=== PATIENT | male | born 1970 | race Caucasian/White ===

== ENCOUNTER 2023-11-20 10:12 | Outpatient (CLI) | payer OTHER, SELFPAY ==
--- NOTE | ~2023-11-20 | CT_ITS ---
EXAMINATION: CT abdomen pelvis w con DATE: 11/20/2023 10:53 INDICATION: Jaundice, abdominal bloating. Nausea, vomiting. TECHNIQUE: Computed tomography (CT) of the abdomen and pelvis was performed with 100 CC Omnipaque 350 intravenous contrast. Automated exposure control and iterative reconstruction technique were employe d. Exam dose: 1354.21 mGy-cm total exam DLP. COMPARISON: None. FINDINGS: There is mild discoid atelectasis or scarring in the right lower lobe. The lung bases are o therwise clear, without infiltrate or consolidation. No pericardial or pleural effusion. Moderately large amount of ascites, with perihepatic, perisplenic, hepatorenal space, bilateral parac olic gutter and pelvic ascitic fluid accumulation. There is subcutaneous adipose edema of the chest, abdominal and pelvic anderson. There appears to be some surface nodularity of liver suggesting cirrhosis. No focal space-occupying m ass lesion of the liver is detected. No bile duct or pancreatic duct dilatation is noted. The gallbla dder is present. No gallbladder wall thickening is evident. There is splenomegaly. Normal morphology of the adrenal glands. 1.3 cm right renal cyst. 1.4 cm left renal cyst. No urinary tract calculus or hydroureteronephrosis. There is mild diffuse bladder wall thickening, mi ld prostatomegaly, multiple prostate calcifications. Surgical clips in both inguinal canals consisten t with prior vasectomy. Is atherosclerotic calcification but normal caliber of the abdominal aorta and iliac arteries. No int raperitoneal or retroperitoneal or pelvic mass lesion or adenopathy is detected. Diverticulosis of the colon; no CT evidence of diverticulitis is noted. No bowel obstruction or intra peritoneal free air. Normal appendix. Old ununited fracture of the distal right 12th rib. No suspicious osteolytic or osteoblastic lesions. IMPRESSION: Cirrhosis, splenomegaly, moderately large amount of ascites Chest and abdominal wall edema Prostate enlargement and calcifications Bilateral renal cysts Reviewed, dictated and finalized at [facility]. Reviewed, dictated and finalized at location [facility].
[2023-11-20 10:42] LABS: Estimated Glomerular Filt Rate > 60
== END 2023-11-20 10:13 ==
PROVIDERS: PCP Nurse Practitioner Family; Visit Provider Nurse Practitioner Family
DX: N40.0 Benign prostatic hyperplasia without lower urinary tract symptoms (principal); K74.60 Unspecified cirrhosis of liver; R16.1 Splenomegaly, not elsewhere classified; R22.2 Localized swelling, mass and lump, trunk; N28.1 Cyst of kidney, acquired
CPT/HCPCS: 74177; Q9967

== ENCOUNTER 2023-11-22 17:17 | Inpatient (IN) | payer OTHER, SELFPAY ==
--- NOTE | ~2023-11-22 | US_ITS ---
EXAMINATION: US paracentesis abd w/image DATE: 11/27/2023 15:19 INDICATION: Ascites. TECHNIQUE: The procedure and its risks and benefits were discussed with the patient. Potential risks discussed included bleeding and infection. The skin was prepped and draped in sterile fashion. 1% lid ocaine was used for local anesthesia. Under ultrasound guidance, a 5 Fr catheter with trochar was adv anced into the ascites in the right abdomen. Fluid was aspirated into vacuum bottles. The catheter wa s removed, and a dressing was applied. There were no immediate complications. FINDINGS: Ultrasound images demonstrate ascites and the catheter within the fluid. IMPRESSION: 1. Successful ultrasound-guided paracentesis yielding 1450 mL of dark brownish fluid. Reviewed, dictated and finalized at location [facility].
--- NOTE | ~2023-11-22 | XR_ITS ---
EXAMINATION: XR chest 2V DATE: 11/22/2023 18:09 INDICATION: Shortness of breath TECHNIQUE: PA and lateral views of the chest are obtained. COMPARISON: None available FINDINGS: There is a mild diffuse interstitial pattern. No pleural effusion or pneumothorax. The card iomediastinal silhouette is normal. The visualized bones and soft tissues are unremarkable. IMPRESSION: 1. Mild diffuse interstitial pattern which could reflect mild pulmonary edema. Reviewed, dictated and finalized at location [facility].
--- NOTE | ~2023-11-22 | CT_ITS ---
EXAMINATION: CT abdomen pelvis w con INDICATION: Left-sided abdominal pain, ascites TECHNIQUE: Computed tomographic images of the abdomen and pelvis were obtained after the administrati on of 100 cc of Omnipaque 350 intravenous contrast. The dose-length product (DLP) was 1600.70 mGy-cm. Automated exposure control and iterative reconstruction technique were employed. COMPARISON: 11/20/2023 FINDINGS: There is mild smooth interlobular septal thickening of the visualized lung bases, consisten t with mild pulmonary edema. The heart size is normal. There is calcified coronary artery atheroscler osis. There is nodularity of the liver surface. Splenomegaly is noted. There is a moderate volume of ascites. The gallbladder remains distended. The pancreas and adrenal glands are normal. Cysts of the kidneys measure up to 1.5 cm on the left. No pathologically enlarged abdominal lymph nodes are identi fied. There is mild bilateral inguinal lymphadenopathy, likely reactive. No free intraperitoneal gas or evidence of bowel obstruction. There is mild lumbar spondylosis. Diffuse anasarca is noted. IMPRESSION: 1. Cirrhosis with splenomegaly. 2. Moderate volume of ascites. 3. Distended gallbladder which may be due to chronic liver disease. Reviewed, dictated and finalized at location [facility].
[2023-11-22 17:18] VITALS: BP 163/71; PULSE 105; RESP 20; TEMP 37; O2SAT 100
--- NOTE | 2023-11-22 17:24 | ED.ABDPAIN ---
HPI - Abdominal Pain General Chief Complaint: Abdominal Pain <GRETA Espinoza Last Filed: 11/22/23 17:33> Stated Complaint: PARACENTESIS REQUESTED <GRETA Espinoza Last Filed: 11/22/23 17:33> Time Seen by Provider: 11/22/23 17:24 <Nayeli Oneill PA-C - Last Filed: 11/22/23 17:33> Focused HPI: Patient is a 53-year-old male who presents the ED with report of abdominal pain and bloating. Patient reports he has had increased abdominal bloating and swelling over the last month. He complains of pain throughout his left-sided abdomen. He also reports he has been jaundiced for the past 1 month. Denies history of jaundice. He is an alcoholic, drinks 4-5 beers per day with a few shots. Denies drinking anything today. States he had an outpatient CT performed on 11/19 which showed cirrhosis and ascites. He saw his primary care doctor today for follow-up and was referred to the ED for paracentesis. Patient denies previous history of paracentesis. He additionally endorses swelling in his lower extremities, shortness of breath, worse with exertion, occasional nausea. Denies fevers, vomiting, chest pain. GENERAL: ill-appearing, morbidly obese with BMI 43.3, and in no acute distress. HEAD: Normocephalic, atraumatic. CHEST: Clear to auscultation. ?No respiratory distress. Decreased lung sounds throughout. HEART: Tachycardic with regular rhythm.? ABD: Abdomen is distended, somewhat firm, tenderness throughout epigastric and left upper abdomen. NEURO: ?Alert and oriented x3. Patient screened in triage and initial orders placed.? ?Additional care and disposition to be based upon?diagnostic testing and treatment. <GRETA Espinoza Last Filed: 11/22/23 17:33> Source: patient and old records reviewed <GRETA Espinoza Last Filed: 11/22/23 17:33> Mode of arrival: ambulatory <GRETA Espinoza Last Filed: 11/22/23 17:33> Limitations: no limitations <Nayeli Oneill PA-C - Last Filed: 11/22/23 17:33> Exam Narrative: APPEARANCE: jaundice, A&O x4 Head: atraumatic. EYES: EOMI, NOSE: Atraumatic NECK: Trachea midline RESPIRATORY: No increased rate of breathing ,bibasilar rales CARDIOVASCULAR: RRR, pitting edema lower extremities ABDOMINAL: Distended, positive fluid wave, nontender MUSCULOSKELETAl: No obvious deformities NEURO: Alert. Moving 4/4 extremities SKIN:: jaundiced PSYCHIATRIC: Normal affect <Emigdio Stoll MD - Last Filed: 11/22/23 21:53> Course Vital Signs Vital signs: Vital Signs Temperature 98.6 F 11/22/23 17:18 Pulse Rate 105 H 11/22/23 17:18 Respiratory Rate 20 11/22/23 17:18 Blood Pressure 163/71 H 11/22/23 17:18 Pulse Oximetry 100 11/22/23 17:18 Oxygen Delivery Room Air 11/22/23 17:18 Temperature 98.6 F 11/22/23 17:18 Pulse Rate 98 11/22/23 21:05 Respiratory Rate 18 11/22/23 21:05 Blood Pressure 133/70 11/22/23 21:05 Pulse Oximetry 97 11/22/23 21:05 Oxygen Delivery Room Air 11/22/23 17:18 <Nayeli Oneill PA-C - Last Filed: 11/22/23 17:33> Vital Signs Temperature 98.6 F 11/22/23 17:18 Pulse Rate 105 H 11/22/23 17:18 Respiratory Rate 20 11/22/23 17:18 Blood Pressure 163/71 H 11/22/23 17:18 Pulse Oximetry 100 11/22/23 17:18 Oxygen Delivery Room Air 11/22/23 17:18 Temperature 98.6 F 11/22/23 17:18 Pulse Rate 98 11/22/23 21:05 Respiratory Rate 18 11/22/23 21:05 Blood Pressure 133/70 11/22/23 21:05 Pulse Oximetry 97 11/22/23 21:05 Oxygen Delivery Room Air 11/22/23 17:18 <Emigdio Stoll MD - Last Filed: 11/22/23 21:53> MDM - Abdominal Pain MDM Narrative Medical decision making narrative: MSE by GEOVANY in triage. <Nayeli Oneill PA-C - Last Filed: 11/22/23 17:33> MSE by GEOVANY in triage. -Course: 53-year-old male presenting with new onset liver failure. He has significant j
--- NOTE | 2023-11-22 17:25 | ECG_ITS ---
Measurements Intervals [place] Rate: 96 P: 35 NE: 164 QRS: -23 QRSD: 101 T: 34 QT: 372 QTc: 470 Interpretive Statements SINUS RHYTHM ATRIAL PREMATURE COMPLEX DELAYED PRECORDIAL R/S TRANSITION MINIMAL Q WAVES- HIGH LATERAL LEADS BORDERLINE ST ABNORMALITY- ANTERIOR LEADS BASELINE WANDER- I, II BORDERLINE ECG NO PREVIOUS ECG AVAILABLE FOR COMPARISON Electronically Signed On 11-23-2023 6:32:15 CDT by Faustino Camarillo D.O.
[2023-11-22 18:59] LABS: Basophils Percent Auto 0.6 % (0.2-1.2); Eosinophils Percent Auto 0.6 % (0-4.4); Hemoglobin 7.8 g/dL (14.0-18.0); Immature Granulocyte Absolute 0.01 K/mm3 (0.00-0.031); Immature Granulocyte Percent A 0.3 % (0-0.5); Immature Platelet Fraction Pct 1.8 % (0.9-11.2); Lymphocytes Absolute Auto 0.64 K/mm3 (0.9-3.2); Lymphocytes Percent Auto 20.3 % (18.3-44.2); Mean Corpuscular HGB Conc 32.5 g/dl (32-36); Mean Corpuscular Hemoglobin 38.4 pg (26-34); Mean Corpuscular Volume 118.2 fl (80-100); Mean Platelet Volume 9.3 fl (7.4-10.4); Monocytes Absolute Auto 0.3 K/mm3 (0.1-0.6); Monocytes Percent Auto 8.6 % (2.6-8.5); Neutrophils Absolute Auto 2.2 K/mm3 (1.3-6.7); Neutrophils Percent Auto 69.6 % (45.5-73.1); Platelet Count Result 43 k/mm3 (150-375); Red Blood Count 2.03 M/mm3 (4.6-6.20); Red Cell Distribution Width 14.8 % (11.5-14.5); White Blood Count 3.2 K/mm3 (4.5-10.0)
[2023-11-22 19:07] LABS: INR 2.6; Prothrombin Time 29.9 Seconds (11.1-14.7)
[2023-11-22 19:08] LABS: Partial Thromboplastin Time 47.9 Seconds (22.3-36.8)
[2023-11-22 19:09] LABS: Ethanol < 10 mg/dL (<10)
[2023-11-22 19:19] LABS: Large Platelets Present; Platelet Estimate Decreased (Adequate)
[2023-11-22 19:20] LABS: Anisocytosis 1+; Macrocytosis 1+ (NORMAL)
[2023-11-22 19:21] LABS: Schistocytes Rare
[2023-11-22 19:28] LABS: Alanine Aminotransferase 35 U/L (6-50); Albumin Level 3.4 g/dL (3.5-5.1); Alkaline Phosphatase 276 U/L (38-126); Anion Gap 4 mmol/L (8-16); Aspartate Amino Transferase 132 U/L (17-59); Bilirubin Direct 2.9 mg/dL (0-0.3); Bilirubin,Total 14.4 mg/dL (0.2-1.3); Blood Urea Nitrogen 8 mg/dL (9-20); Calcium 8.1 mg/dL (8.4-10.2); Carbon Dioxide 27 mmol/L (22-30); Chloride 103 mmol/L (98-107); Estimated CRCL calculation 201 ml/min; Estimated Glomerular Filt Rate > 60; Glucose 139 mg/dL (65-110); Lipase 122 U/L (23-300); Magnesium 1.6 mg/dL (1.6-2.3); Potassium 4.6 mmol/L (3.4-5.0); Sodium 134 mmol/L (137-145)
[2023-11-22 19:39] LABS: NT Pro B Type Natriuretic Pept 358 pg/mL (19.9-100)
[2023-11-22 19:40] LABS: Bacteria Urine None Seen /hpf; Mucus Urine Present /lpf; Need Manual Microscopic Reviewed; Non Pathogenic Casts 0-2; RBC Urine 0-2 /hpf (0-2); Squamous Epithelial Cell Urine Few /hpf (Few); WBC Urine 0-5 /hpf (0-3)
[2023-11-22 19:42] LABS: Appearance Urine Cloudy (Clear); Bilirubin Urine 3+ (Negative); Blood Urine Negative (Negative); Color Urine Orange (Yellow); Glucose Urine UA Negative (Negative); Ketones Urine Negative (Negative); Leukocyte Esterase Ur 1+ LEU/UL (Negative); Nitrate Urine Positive (Negative); Protein Urine 1+ mg/dL (Negative); Specific Grav Ur 1.025 (1.001-1.035); pH Urine 5.5 (5.0-9.0)
[2023-11-22 19:45] LABS: Add Urine Microscopic? YES
[2023-11-22 19:49] LABS: Amphetamine Screen Urine Negative (Negative); Barbiturate Screen Urine Negative (Negative); Benzodiazepines Screen Urine Negative (Negative); Cannabinoid Screen Urine Negative (Negative); Cocaine Screen Urine Negative (Negative); Methadone Screen Urine Negative (Negative); Opiate Screen Urine Negative (Negative); Phencyclidine Screen Urine Negative (Negative)
[2023-11-22 21:05] VITALS: BP 133/70; PULSE 98; RESP 18; O2SAT 97
[2023-11-22 22:00] VITALS: BP 118/76; PULSE 96; RESP 18; O2SAT 98
--- NOTE | 2023-11-22 22:21 | PM.IMHP ---
H&P: HPI History of Present Illness Date/Time: 11/22/23 22:21 Chief Complaint: Abdominal distension Narrative: this is a 53-year-old male with past medical history significant for alcohol dependence, hepatic cirrhosis, tobacco dependence. Patient presents to the emergency room due to abdominal distension, leg swelling, increased abdominal girth, jaundice. Has had chills. Denies any hematemesis, coffee-ground emesis, melena, or bright red blood per rectum. Preliminary workup showed moderate amount of ascites present. Patient has been admitted for further evaluation management and treatment. EXAMINATION: XR chest 2V DATE: 11/22/2023 18:09 INDICATION: Shortness of breath TECHNIQUE: PA and lateral views of the chest are obtained. COMPARISON: None available FINDINGS: There is a mild diffuse interstitial pattern. No pleural effusion or pneumothorax. The cardiomediastinal silhouette is normal. The visualized bones and soft tissues are unremarkable. IMPRESSION: 1. Mild diffuse interstitial pattern which could reflect mild pulmonary edema. EXAMINATION: CT abdomen pelvis w con INDICATION: Left-sided abdominal pain, ascites TECHNIQUE: Computed tomographic images of the abdomen and pelvis were obtained after the administration of 100 cc of Omnipaque 350 intravenous contrast. The dose-length product (DLP) was 1600.70 mGy-cm. Automated exposure control and iterative reconstruction technique were employed. COMPARISON: 11/20/2023 FINDINGS: There is mild smooth interlobular septal thickening of the visualized lung bases, consistent with mild pulmonary edema. The heart size is normal. There is calcified coronary artery atherosclerosis. There is nodularity of the liver surface. Splenomegaly is noted. There is a moderate volume of ascites. The gallbladder remains distended. The pancreas and adrenal glands are normal. Cysts of the kidneys measure up to 1.5 cm on the left. No pathologically enlarged abdominal lymph nodes are identified. There is mild bilateral inguinal lymphadenopathy, likely reactive. No free intraperitoneal gas or evidence of bowel obstruction. There is mild lumbar spondylosis.? Diffuse anasarca is noted. IMPRESSION: 1. Cirrhosis with splenomegaly. 2. Moderate volume of ascites. 3. Distended gallbladder which may be due to chronic liver disease. Review of Systems Review of Systems: Abdominal distension, jaundice Constitutional: Constitutional: Reports chills, Reports fatigue, Reports lethargy and Reports malaise PMFSH Social History Social History Smoking packs per day: 1.5 Smoking cigarettes per day: 30.0 Years smoked: 40 Smoking pack-years: 60.00 Smoking status: Current every day smoker Tobacco type: cigarettes Second hand tobacco smoke exposure: No Alcohol intake: current Substance use: never Do You Feel Safe in your Home?: Yes Lack of Transportation: No Lack of Food: Never True Current Housing: I Have Housing Concerned About Future Housing: No Difficulty Paying Gas/Electric Bills: No Difficulty Paying for Meds: No Currently Unemployed: No Education: High School Diploma/GED Difficulty w/ Childcare or Family Care: No Spiritual care concerns: No Meds Home Medications and Allergies Home Medications Medication Instructions Recorded Confirmed Type lisinopril 10 mg tablet 10 mg PO DAILY 11/22/23 11/22/23 History naproxen 500 mg tablet 500 mg PO PRN 11/22/23 11/22/23 History omeprazole 40 mg capsule,delayed 40 mg PO DAILY 11/22/23 11/22/23 History release sertraline 50 mg tablet (Zoloft) 50 mg PO DAILY 11/22/23 11/22/23 History sildenafil (pulm.hypertension) 20 20 mg PO DAILY 11/22/23 11/22/23 History mg tablet (Revatio) Allergies Allergy/AdvReac Type Severity Reaction Status Date / Time No Known Allergies Allergy Verified 11/22/23 22:02 Vital Signs Vital Signs - 24 hr 11/22/23 17:18 11/22/23 21:05 11/22/23 22:00 Temp
[2023-11-22] MEDS: FUROSEMIDE INJ 40 MG/4 ML VIAL IV PUSH (22:25)
[2023-11-22 23:35] VITALS: BMI 43.3
[2023-11-22 23:36] VITALS: BP 143/73; PULSE 107; RESP 20; TEMP 37.5; O2SAT 98
[2023-11-23] VITALS (19 sets, daily range): BP systolic 104–148; BP diastolic 56–74; PULSE 84–107; RESP 18–20; TEMP 36.6–37.5; O2SAT 95–99
--- NOTE | 2023-11-23 00:06 | PC.NURSE ---
Pt is A&O x4, able to make needs known. Pt is here for liver cirrhosis, ascites. On assessment, abdomen is large, hard, distended, tender to palpation in LUQ. +2 edema to BLE. Pt lives at home with spouse. Pt smokes on average 30 cigarettes and currently consumes alcohol. Pt's last drink was yesterday. Pt reports that he drinks about 3 beers and 3 shots daily for many years. Pt is currently on room air and no telemetry ordered, pt ambulates independently in the room and is continent. Very pronounced jaundice noted. Pt was educated on admission process, medication reconciliation completed, use of call light explained and encouraged. Pt's rights and responsibilities explained. Pt verbalized understanding. No further questions at this time, will continue to monitor.
[2023-11-23 00:35] LABS: Folic Acid 7.9 ng/mL (2.76->20)
[2023-11-23] MEDS: ALBUMIN HUMAN 25% 12.5 GM/50ML 50 ML IVPB ×4 (01:06→23:49)
[2023-11-23] MEDS: chlordiazePOXIDE (*CRX) 25 MG CAPSULE 50 MG PO ×5 (01:07→23:43)
[2023-11-23] MEDS: NICOTINE (*PBKC) 21 MG PATCH 1 PATCH TRANSDERM (01:29)
[2023-11-23 05:39] LABS: Glucose Point of Care 124 mg/dl (65-105)
[2023-11-23 07:35] LABS: Mean Corpuscular HGB Conc 32.8 g/dl (32-36); Mean Corpuscular Hemoglobin 38.6 pg (26-34); Mean Corpuscular Volume 117.5 fl (80-100); Mean Platelet Volume 9.4 fl (7.4-10.4); Platelet Count Result 39 k/mm3 (150-375); Red Blood Count 1.71 M/mm3 (4.6-6.20); Red Cell Distribution Width 14.9 % (11.5-14.5); White Blood Count 3.1 K/mm3 (4.5-10.0)
[2023-11-23 07:43] LABS: Anion Gap 3 mmol/L (8-16); Blood Urea Nitrogen 9 mg/dL (9-20); Carbon Dioxide 30 mmol/L (22-30); Chloride 102 mmol/L (98-107); Estimated CRCL calculation 150 ml/min; Estimated Glomerular Filt Rate > 60; Glucose 121 mg/dL (65-110); Potassium 3.5 mmol/L (3.4-5.0); Sodium 135 mmol/L (137-145)
[2023-11-23 07:51] LABS: Hemoglobin 6.6 g/dL (14.0-18.0)
[2023-11-23 07:52] LABS: Hematocrit 20.1 % (42.0-52.0)
[2023-11-23 09:53] LABS: Band Neutrophils Percent 7 % (0-6); Eosinophils Absolute Manual 0.03 K/mm3 (0.02-0.50); Eosinophils Percent Manual 1 % (0-4); Hypochromasia 1+; Lymphocytes Absolute Manual 0.96 K/mm3 (1.1-4.5); Monocytes Absolute Manual 0.18 K/mm3 (0.1-0.90); Monocytes Percent Manual 6 % (3-9); Neutrophils Absolute Manual 1.92 K/mm3 (1.3-6.7); Neutrophils Percent Manual 55 % (46-73); Ovalocytes 1+; Platelet Estimate Decreased (Adequate); Schistocytes None Seen; Total Cells Counted 100
[2023-11-23] MEDS: PANTOPRAZOLE 40 MG TABLET PO ×2 (10:19→18:20)
[2023-11-23] MEDS: SODIUM CHLORIDE 0.9% IV 250 ML 30 ML IV CONT (10:19)
[2023-11-23] MEDS: lisinopriL 10 MG TABLET PO (10:19)
[2023-11-23] MEDS: SERTRALINE HCL 50 MG TABLET PO (10:19)
[2023-11-23 11:38] LABS: Iron 158 ug/dL (49-181)
[2023-11-23] MEDS: SPIRONOLACTONE 50 MG TABLET 100 MG PO (11:40)
[2023-11-23] MEDS: FUROSEMIDE 40 MG TABLET PO (11:40)
[2023-11-23 11:48] LABS: Percent Iron Saturation 78 % (20-50)
[2023-11-23 12:10] LABS: Glucose Point of Care 160 mg/dl (65-105)
--- NOTE | 2023-11-23 12:43 | PM.IMPN ---
Progress Note: A&P Assessment and Plan (1) Decompensation of cirrhosis of liver: Code(s): K72.90 - Hepatic failure, unspecified without coma; K74.60 - Unspecified cirrhosis of liver Status: Acute Assessment and Plan: H&H 6.620.1 this, 2 units PRBC ordered and will continue to monitor iron studies ordered AST/ALT 132/35 paracentesis on hold until after PRBC infusion peritoneal fluid for analysis ordered albumin Q6 started on spironolactone 100 mg and Lasix 40 mg daily patient reports his PCP is referring to loom technician (2) Alcohol dependence: Code(s): F10.20 - Alcohol dependence, uncomplicated Status: Acute Assessment and Plan: CIWA as needed (3) Ascites: Code(s): R18.8 - Other ascites Status: Acute Assessment and Plan: see above (4) Anasarca: Code(s): R60.1 - Generalized edema Status: Acute Assessment and Plan: albumin Q6h Lasix 40 Subjective Date/time seen: 11/23/23 12:43 Interval history: Patient in no acute distress this morning. He denies abdominal pain. His legs are still quite swollen, pitting edema and his skin is jaundiced. He reports his PCP is in the process of referring him to loom technician, but he is not yet established. He will receive 2 units PRBC today and recheck 2 hours post. Continue to trend and monitor. Consider GI consult or transfer if further decompensation. Paracentesis on hold until after blood transfusion, but has been ordered along with fluid studies. Review of Systems Review of Systems: All systems reviewed & are unremarkable except as noted in HPI and below Exam Narrative: GEN: jaundice, A&O x4, no acute distress Head: atraumatic. EYES: EOMI, PERRLA NOSE: Atraumatic NECK: supple RESPIRATORY: lungs sounds clear to auscultation CARDIOVASCULAR: RRR, pitting edema lower extremities ABDOMINAL: Distended, nontender, BS present MUSCULOSKELETAL: No obvious deformities NEURO: Alert. Moving 4/4 extremities SKIN:: jaundiced PSYCHIATRIC: Normal affect Objective Data Vital Signs Vital Signs: Vital Signs - 24 hr 11/22/23 17:18 11/22/23 21:05 11/22/23 22:00 Temperature 98.6 F Pulse Rate 105 H 98 96 Respiratory Rate 20 18 18 Blood Pressure 163/71 H 133/70 118/76 Pulse Oximetry 100 97 98 Oxygen Delivery Room Air 11/22/23 23:36 11/23/23 00:22 11/23/23 00:22 Temperature 99.5 F Pulse Rate 107 H Respiratory Rate 20 Blood Pressure 143/73 H 143/73 H 143/73 H Pulse Oximetry 98 Oxygen Delivery 11/23/23 00:23 11/23/23 04:00 11/23/23 04:00 Temperature 99.5 F Pulse Rate 107 H Respiratory Rate 20 Blood Pressure 143/73 H 148/60 H 148/60 H Pulse Oximetry 98 Oxygen Delivery 11/23/23 04:00 11/23/23 05:20 11/23/23 10:12 Temperature 99.0 F 98.6 F Pulse Rate 106 H 100 100 Respiratory Rate 20 18 Blood Pressure 129/61 122/57 L Pulse Oximetry 95 99 Oxygen Delivery 11/23/23 10:31 11/23/23 09:48 11/23/23 08:00 Temperature 98.4 F Pulse Rate 95 93 Respiratory Rate 18 Blood Pressure 128/61 Pulse Oximetry 96 Oxygen Delivery Room Air 11/23/23 11:31 Temperature 98.3 F Pulse Rate 89 Respiratory Rate 20 Blood Pressure 129/61 Pulse Oximetry 96 Oxygen Delivery Intake/Output Intake/Output: Intake & Output 11/20/23 11/21/23 11/22/23 11/23/23 23:59 23:59 23:59 23:59 Intake Total 50 Output Total 200 Balance -150 Meds/Results Medications: Active Medications Generic Name Dose Route Start Last Admin Trade Name Freq PRN Reason Stop Dose Admin Chlordiazepoxide HCl 50 mg 11/23/23 00:35 11/23/23 11:41 Chlordiazepoxide (*Crx) 25 Mg Capsule PO 50 mg Q6HR MARCELL Administration Furosemide 40 mg 11/23/23 11:00 11/23/23 11:40 Furosemide 40 Mg Tablet PO 40 mg DAILY MARCELL Administration Albumin Human 50 mls @ 50 mls/hr 11/23/23 00:35 11/23/23 05:49 Albutein IVPB 50 mls/hr Q6H
--- NOTE | 2023-11-23 13:10 | P.CONGI_ITS ---
I, Kristian Pepper MD, have provided a substantive portion of the care of this patient and discussed the patient with my Nurse Practitioner. I have reviewed any new relevant radiographic and laboratory results including medications. I agree with her documentation as noted below.?I personally performed the medical decision making and much of the history and exam for this encounter. briefly he is an alcoholic diagnosed with cirrhosis 2-3 months ago but still has been drinking. Here with more jaundice and generalized weakness. Blood work consistent with alcoholic hepatitis, CT scan with cirrhosis and ascites- paracentesis with cell count ordered, also will calculate SAAG. He has decompensated cirrhosis, also pancytopenia could be from cirrhosis/alcohol abuse with BM dysfunction and hypersplenism, no overt gib but at some point will need EGD to assess for PHT and varices. Thiamine, nutrition support, ciwa protocol. He needs to be abstinent and also will need to establish with hepatology given high MELD score Assessment and Plan Assessment and plan (1) Decompensation of cirrhosis of liver: Code(s): K72.90 - Hepatic failure, unspecified without coma; K74.60 - Unspecified cirrhosis of liver Status: Acute Assessment and Plan: likely related to chronic alcohol use but will complete liver w/u to rule out other causes of liver diseases. paracentesis in a.m. peritoneal fluid for analysis. Pancytopenia noted, tbili 14.4, AST 132, ALk phos 276, PT 29.9 and INR 2.6. MELD score 27. stop alcohol all together. (2) Ascites: Code(s): R18.8 - Other ascites Status: Acute Assessment and Plan: paracenteses in a.m. -receiving lasix and spironolactone. (3) Alcohol dependence: Code(s): F10.20 - Alcohol dependence, uncomplicated Status: Acute Assessment and Plan: thiamine 100 mg daily ensure with meals. (4) Anasarca: Code(s): R60.1 - Generalized edema Status: Acute Assessment and Plan: receiving albumin diurese as needed (5) Pancytopenia: Code(s): D61.818 - Other pancytopenia Status: Acute Assessment and Plan: in setting of alcoholic cirrhosis PRBC transfusion done today. (6) Acute liver failure: Code(s): K72.00 - Acute and subacute hepatic failure without coma Status: Acute GI Consult Note Consult date/time: 11/23/23 13:10 Reason for consult: liver failure HPI: Jose Velázquez is a 53 year old male who was admitted to [facility] after presenting to ER with abdominal swelling and jaundice for the past month. He was first dx with cirrhosis approximately 1 month ago. He is an alcoholic and drinks 4-5 beers per day with a few shots, he has been doing this daily since COVID. CT scan of abdomen pelvis with contrast 1. Cirrhosis with splenomegaly. 2. Moderate volume of ascites. 3. Distended gallbladder which may be due to chronic liver disease. Pancytopenia noted, tbili 14.4, AST 132, ALk phos 276, PT 29.9 and INR 2.6. he denies any family history of chronic liver disease or cancers. he denies any IV drug use. he does report fatigue over the past month. He denies any nausea, coffee-ground emesis or black stools. He has had some frequent nose bleeds. reports abdominal tenderness but no fevers. no hx of heart disease. Review of Systems Constitutional: Constitutional: Reports fatigue Eyes: Eyes: Reports as per HPI ENT: Reports epistaxis Cardiovascular: Cardiovascular: Reports no additional cardiovascular complaints Respiratory: Respira
--- NOTE | 2023-11-23 13:10 | WPDGICN ---
Assessment and Plan Assessment and plan (1) Decompensation of cirrhosis of liver: Code(s): K72.90 - Hepatic failure, unspecified without coma; K74.60 - Unspecified cirrhosis of liver Status: Acute Assessment and Plan: likely related to chronic alcohol use but will complete liver w/u to rule out other causes of liver diseases. paracentesis in a.m. peritoneal fluid for analysis. Pancytopenia noted, tbili 14.4, AST 132, ALk phos 276, PT 29.9 and INR 2.6. MELD score 27. stop alcohol all together. (2) Ascites: Code(s): R18.8 - Other ascites Status: Acute Assessment and Plan: paracenteses in a.m. -receiving lasix and spironolactone. (3) Alcohol dependence: Code(s): F10.20 - Alcohol dependence, uncomplicated Status: Acute Assessment and Plan: thiamine 100 mg daily ensure with meals. (4) Anasarca: Code(s): R60.1 - Generalized edema Status: Acute Assessment and Plan: receiving albumin diurese as needed (5) Pancytopenia: Code(s): D61.818 - Other pancytopenia Status: Acute Assessment and Plan: in setting of alcoholic cirrhosis PRBC transfusion done today. (6) Acute liver failure: Code(s): K72.00 - Acute and subacute hepatic failure without coma Status: Acute GI Consult Note Consult date/time: 11/23/23 13:10 Reason for consult: liver failure HPI: Jose Velázquez is a 53 year old male who was admitted to [facility] after presenting to ER with abdominal swelling and jaundice for the past month. He was first dx with cirrhosis approximately 1 month ago. He is an alcoholic and drinks 4-5 beers per day with a few shots, he has been doing this daily since [facility]. CT scan of abdomen pelvis with contrast 1. Cirrhosis with splenomegaly. 2. Moderate volume of ascites. 3. Distended gallbladder which may be due to chronic liver disease. Pancytopenia noted, tbili 14.4, AST 132, ALk phos 276, PT 29.9 and INR 2.6. he denies any family history of chronic liver disease or cancers. he denies any IV drug use. he does report fatigue over the past month. He denies any nausea, coffee-ground emesis or black stools. He has had some frequent nose bleeds. reports abdominal tenderness but no fevers. no hx of heart disease. Review of Systems Constitutional: Constitutional: Reports fatigue Eyes: Eyes: Reports as per HPI ENT: Reports epistaxis Cardiovascular: Cardiovascular: Reports no additional cardiovascular complaints Respiratory: Respiratory: Reports no additional respiratory complaints and Denies hemoptysis Gastrointestinal: Gastrointestinal: Reports as per HPI Musculoskeletal: Musculoskeletal: Reports as per HPI Integumentary/Breasts: Skin/Breast: Reports system reviewed and no additional complaints, except as docu Neurologic: Reports system reviewed and no additional complaints, except as documented Psychiatric: Psychiatric: Reports no additional psychiatric complaints [facility] Past Medical History Medical History (Updated 11/23/23 @ 14:20 by Linda Milan APN-Zeina) Pancytopenia Social History Social History Smoking packs per day: 1.5 Smoking cigarettes per day: 30.0 Years smoked: 40 Smoking pack-years: 60.00 Smoking status: Current every day smoker Tobacco type: cigarettes Second hand tobacco smoke exposure: No Alcohol intake: current Substance use: never Do You Feel Safe in your Home?: Yes Lack of Transportation: No Lack of Food: Never True Current Housing: I Have Housing Concerned About Future Housing: No Difficulty Paying Gas/Electric Bills: No Difficulty Paying for Meds: No Currently Unemployed: No Education: High School Diploma/GED Difficulty w/ Childcare or Family Care: No Spiritual care concerns: No Meds Home Medications and Allergies Home Medications Medication Instructions Recorded Confirmed Type lisinopril 10 mg tablet 10 mg PO DAILY
[2023-11-23 16:55] LABS: Glucose Point of Care 136 mg/dl (65-105)
[2023-11-23 20:14] LABS: Hematocrit 23.1 % (42.0-52.0); Hemoglobin 7.7 g/dL (14.0-18.0)
[2023-11-23 20:55] LABS: Hepatitis B Surface Antigen Negative (Negative)
[2023-11-23 21:00] LABS: HAV RESULT Negative (Negative); Hepatitis B Core IgM Result Negative (Negative)
[2023-11-23 21:12] LABS: Hepatitis C Virus Antibody Negative (Negative)
[2023-11-23 23:55] LABS: Glucose Point of Care 147 mg/dl (65-105)
[2023-11-24] VITALS (10 sets, daily range): BP systolic 105–136; BP diastolic 62–72; PULSE 86–95; RESP 18–20; TEMP 36.4–37; O2SAT 95–96
[2023-11-24 05:09] LABS: Basophils Percent Auto 0.3 % (0.2-1.2); Eosinophils Absolute Auto 0.1 K/mm3 (0-0.3); Eosinophils Percent Auto 1.8 % (0-4.4); Hematocrit 22.5 % (42.0-52.0); Hemoglobin 7.3 g/dL (14.0-18.0); Immature Granulocyte Absolute 0.02 K/mm3 (0.00-0.031); Immature Granulocyte Percent A 0.6 % (0-0.5); Lymphocytes Absolute Auto 0.99 K/mm3 (0.9-3.2); Lymphocytes Percent Auto 30.1 % (18.3-44.2); Mean Corpuscular HGB Conc 32.4 g/dl (32-36); Mean Corpuscular Volume 110.8 fl (80-100); Mean Platelet Volume 9.4 fl (7.4-10.4); Monocytes Absolute Auto 0.3 K/mm3 (0.1-0.6); Monocytes Percent Auto 8.5 % (2.6-8.5); Neutrophils Absolute Auto 1.9 K/mm3 (1.3-6.7); Neutrophils Percent Auto 58.7 % (45.5-73.1); Platelet Count Result 38 k/mm3 (150-375); Red Blood Count 2.03 M/mm3 (4.6-6.20); White Blood Count 3.3 K/mm3 (4.5-10.0)
[2023-11-24 05:36] LABS: Alanine Aminotransferase 26 U/L (6-50); Albumin Level 2.8 g/dL (3.5-5.1); Alkaline Phosphatase 158 U/L (38-126); Anion Gap 3 mmol/L (8-16); Aspartate Amino Transferase 61 U/L (17-59); Bilirubin,Total 18.4 mg/dL (0.2-1.3); Blood Urea Nitrogen 11 mg/dL (9-20); Calcium 8.1 mg/dL (8.4-10.2); Carbon Dioxide 28 mmol/L (22-30); Chloride 102 mmol/L (98-107); Estimated CRCL calculation 173 ml/min; Estimated Glomerular Filt Rate > 60; Glucose 113 mg/dL (65-110); Potassium 3.6 mmol/L (3.4-5.0); Sodium 133 mmol/L (137-145)
[2023-11-24] MEDS: ALBUMIN HUMAN 25% 12.5 GM/50ML 50 ML IVPB ×4 (05:49→23:50)
[2023-11-24] MEDS: chlordiazePOXIDE (*CRX) 25 MG CAPSULE 50 MG PO ×4 (05:49→23:51)
--- NOTE | 2023-11-24 07:11 | P.PNIM_ITS ---
Progress Note: A&P Assessment and Plan (1) Decompensation of cirrhosis of liver: Code(s): K72.90 - Hepatic failure, unspecified without coma; K74.60 - Unspecified cirrhosis of liver Status: Acute (2) Alcohol dependence: Qualifiers: Substance use status: other alcohol-induced disorder Qualified Code(s): F10.288 - Alcohol dependence with other alcohol-induced disorder Code(s): F10.20 - Alcohol dependence, uncomplicated Status: Acute (3) Ascites: Qualifiers: Ascites type: due to alcoholic cirrhosis Qualified Code(s): K70.31 - Alcoholic cirrhosis of liver with ascites Code(s): R18.8 - Other ascites Status: Acute (4) Anasarca: Code(s): R60.1 - Generalized edema Status: Acute Plan Hepatic Failure: Cirrhosis * ?H&H 6.6/20.1 this, 2 units PRBC ordered and will continue to monitor? * ?iron studies ordered * ?AST/ALT 132/35/TBill 18.4 * ?paracentesis on hold until after PRBC infusion * CT ABD Ascites/cirrhosis * ?peritoneal fluid for analysis ordered * ?albumin Q6 * started on spironolactone 100 mg and Lasix 40 mg daily * patient reports his PCP is referring to [place] operator * MELD score 27 * ETOH cessation * Ammonia pending * GI consulted for further recommendations * daily Coag's ETOH abuse: * Thiamine, folic acid, and multi-vitamin * PPI daily * Ativan PRN * CIWA daily * Monitor and replenish electrolytes as needed * Seizure precautions if indicated Anasarca/Ascites: Secondary to cirrhosis * spironolactone/lasix * paracentesis when Hgb/PLT stable * albumin q6hr Pancytopenia: Secondary to acute liver failure * 2 Units PRBC transfused * Hgb 11/23 7.3 * PLT 38 * Transfuse PRBC if Hgb <7.0 * Transfuse PLT <20 Code status: Full code per patient DVT prophylaxis: SCD's Stress ulcer prophylaxis: Protonix 40 BID PT/OT notes: Ambulatory Disposition: Patient continues admission to the medical unit for acute liver failure with ascites will need to undergo paracentesis and studies once coag's are stable. Patient reports he has been referred to a [place] operator by his PCP for continued treatment O/P obliviously if patient decompensates he will need transferred. Encouraged immediate ETOH cessation. Time Spent With Patient Time with patient: 15 - 25 minutes Subjective Date/time seen: 11/24/23 07:11 Interval history: Medical Record: this is a 53-year-old male with past medical history significant for alcohol dependence, hepatic cirrhosis, tobacco dependence.? Patient presents to the emergency room due to abdominal distension, leg swelling, increased abdominal girth, jaundice.? Has had chills.? Denies any hematemesis, coffee-ground emesis, melena, or bright red blood per rectum.? Preliminary workup showed moderate amount of ascites present.? Patient has been admitted for further evaluation management and treatment. 11/22: Medical Record Patient in no acute distress this morning. He denies abdominal pain. His legs are still quite swollen, pitting edema and his skin is jaundiced. He reports his PCP is in the process of referring him to [place] operator, but he is not yet established. He will receive 2 units PRBC today and recheck 2 hours post. Continue to trend and monitor. Consider GI consult or transfer if further decompensation. Paracentesis on hold until after blood transfusion, but has been ordered along with fluid studies. 11/23: Patient denies any w/d symptoms, ABD distended unable to perform paracent
--- NOTE | 2023-11-24 07:11 | PM.IMPN ---
Progress Note: A&P Assessment and Plan (1) Decompensation of cirrhosis of liver: Code(s): K72.90 - Hepatic failure, unspecified without coma; K74.60 - Unspecified cirrhosis of liver Status: Acute (2) Alcohol dependence: Qualifiers: Substance use status: other alcohol-induced disorder Qualified Code(s): F10.288 - Alcohol dependence with other alcohol-induced disorder Code(s): F10.20 - Alcohol dependence, uncomplicated Status: Acute (3) Ascites: Qualifiers: Ascites type: due to alcoholic cirrhosis Qualified Code(s): K70.31 - Alcoholic cirrhosis of liver with ascites Code(s): R18.8 - Other ascites Status: Acute (4) Anasarca: Code(s): R60.1 - Generalized edema Status: Acute Plan Hepatic Failure: Cirrhosis ?H&H 6.6/20.1 this, 2 units PRBC ordered and will continue to monitor? ?iron studies ordered ?AST/ALT 132/35/TBill 18.4 ?paracentesis on hold until after PRBC infusion CT ABD Ascites/cirrhosis ?peritoneal fluid for analysis ordered ?albumin Q6 started on spironolactone 100 mg and Lasix 40 mg daily patient reports his PCP is referring to director economic MELD score 27 ETOH cessation Ammonia pending GI consulted for further recommendations daily Coag's ETOH abuse: Thiamine, folic acid, and multi-vitamin PPI daily Ativan PRN CIWA daily Monitor and replenish electrolytes as needed Seizure precautions if indicated Anasarca/Ascites: Secondary to cirrhosis spironolactone/lasix paracentesis when Hgb/PLT stable albumin q6hr Pancytopenia: Secondary to acute liver failure 2 Units PRBC transfused Hgb 11/23 7.3 PLT 38 Transfuse PRBC if Hgb <7.0 Transfuse PLT <20 Code status: Full code per patient DVT prophylaxis: SCD's Stress ulcer prophylaxis: Protonix 40 BID PT/OT notes: Ambulatory Disposition: Patient continues admission to the medical unit for acute liver failure with ascites will need to undergo paracentesis and studies once coag's are stable. Patient reports he has been referred to a director economic by his PCP for continued treatment O/P obliviously if patient decompensates he will need transferred. Encouraged immediate ETOH cessation. Time Spent With Patient Time with patient: 15 - 25 minutes Subjective Date/time seen: 11/24/23 07:11 Interval history: Medical Record: this is a 53-year-old male with past medical history significant for alcohol dependence, hepatic cirrhosis, tobacco dependence.? Patient presents to the emergency room due to abdominal distension, leg swelling, increased abdominal girth, jaundice.? Has had chills.? Denies any hematemesis, coffee-ground emesis, melena, or bright red blood per rectum.? Preliminary workup showed moderate amount of ascites present.? Patient has been admitted for further evaluation management and treatment. 11/22: Medical Record Patient in no acute distress this morning. He denies abdominal pain. His legs are still quite swollen, pitting edema and his skin is jaundiced. He reports his PCP is in the process of referring him to director economic, but he is not yet established. He will receive 2 units PRBC today and recheck 2 hours post. Continue to trend and monitor. Consider GI consult or transfer if further decompensation. Paracentesis on hold until after blood transfusion, but has been ordered along with fluid studies. 11/23: Patient denies any w/d symptoms, ABD distended unable to perform paracentesis due to coagulations will attempt tomorrow switched to IV lasix. Jaundice and ammonia levels elevated no AMS. Patient denied any current pain, CP, SOB, or N/V. Review of Systems Review of Systems: All systems reviewed & are unremarkable except as noted in HPI and below Exam Narrative: Physical Exam: GENERAL: Alert and oriented x 3. No acute distress. Well-nourished. Jaundice EYES: EOMI. No scleral icterus. PERRLA. HEENT: Moist mucous
[2023-11-24 07:20] LABS: Glucose Point of Care 116 mg/dl (65-105)
[2023-11-24 08:43] LABS: Ammonia 50 umol/L (9-30)
[2023-11-24] MEDS: PANTOPRAZOLE SODIUM IV 40 MG VIAL IV PUSH ×2 (09:56→20:30)
[2023-11-24] MEDS: NICOTINE (*PBKC) 21 MG PATCH 1 PATCH TRANSDERM (09:57)
[2023-11-24 10:58] LABS: INR 2.9; Prothrombin Time 33.1 Seconds (11.1-14.7)
[2023-11-24 10:59] LABS: Partial Thromboplastin Time 48.4 Seconds (22.3-36.8)
[2023-11-24 12:08] LABS: Glucose Point of Care 107 mg/dl (65-105)
[2023-11-24] MEDS: SERTRALINE HCL 50 MG TABLET PO (12:16)
[2023-11-24] MEDS: lisinopriL 10 MG TABLET PO (12:17)
[2023-11-24] MEDS: SPIRONOLACTONE 50 MG TABLET 100 MG PO (12:17)
[2023-11-24] MEDS: FUROSEMIDE 40 MG TABLET PO (12:17)
[2023-11-24] MEDS: FOLIC ACID 1 MG TABLET PO (12:17)
[2023-11-24] MEDS: THIAMINE HCL 100 MG TABLET PO (12:17)
--- NOTE | 2023-11-24 12:55 | WPDGIPROGNO ---
Progress Note: A&P Assessment and Plan (1) Decompensation of cirrhosis of liver: Code(s): K72.90 - Hepatic failure, unspecified without coma; K74.60 - Unspecified cirrhosis of liver Status: Acute Assessment and Plan: he has high meld score and discriminant function intermediate prognosis is guarded specially if he does not stop drinking (2) Alcohol dependence: Qualifiers: Substance use status: other alcohol-induced disorder Qualified Code(s): F10.288 - Alcohol dependence with other alcohol-induced disorder Code(s): F10.20 - Alcohol dependence, uncomplicated Status: Acute Assessment and Plan: [facility] protocol thiamine, nutrition support (3) Pancytopenia: Code(s): D61.818 - Other pancytopenia Status: Acute Assessment and Plan: from cirrhosis, may have bone marrow dysfunction from alcohol he received blood transfusion no overt gib but monitor (4) Ascites: Qualifiers: Ascites type: due to alcoholic cirrhosis Qualified Code(s): K70.31 - Alcoholic cirrhosis of liver with ascites Code(s): R18.8 - Other ascites Status: Acute Assessment and Plan: pending paracentesis, will check cell count and saag (5) Anasarca: Code(s): R60.1 - Generalized edema Status: Acute (6) Coagulopathy: Code(s): D68.9 - Coagulation defect, unspecified Status: Acute Assessment and Plan: will give 3 days of vit K (7) Alcoholic hepatitis: Code(s): K70.10 - Alcoholic hepatitis without ascites Status: Acute Assessment and Plan: medical support he will need to establish with hepatology Subjective Date/time seen: 11/24/23 12:55 Interval history: no changes, he is hungry because was npo to get paracentesis (postponed because high inr and low platelets) Review of Systems Review of Systems: All systems reviewed & are unremarkable except as noted in HPI and below Exam Const: General: comfortable Other: chronically ill appearing, jaundice HENMT: Face/Nose/Sinus: Normal nares present Eyes: Sclera: scleral abnormality (icteric) bilateral (scleral icterus) Neck: Neck: supple Resp: Effort & Inspection: normal respiratory effort Auscultation: clear to auscultation bilaterally Cardio: Rate: regular rate Rhythm: regular rhythm GI: Inspection: distended GI Palp: No Tenderness to palpation present (GI) and Yes Ascites present Percussion: Yes Fluid wave present Auscultation: normal bowel sounds Skin: Other: icteric Neuro: Speech: normal speech Motor exam (neuro): 5/5 motor strength present throughout Extrem: General: edema bilateral and pedal edema Psych: Affect: normal affect Objective Data Vital Signs Vital Signs: Vital Signs - 24 hr 11/23/23 13:30 11/23/23 14:18 11/23/23 14:36 Temperature 98.1 F 98.3 F 98.2 F Pulse Rate 91 84 87 Respiratory Rate 18 18 20 Blood Pressure 119/56 L 109/57 L 112/59 L Pulse Oximetry 96 97 97 Oxygen Delivery 11/23/23 15:36 11/23/23 16:00 11/23/23 16:36 Temperature 98.3 F 98.4 F Pulse Rate 84 86 85 Respiratory Rate 18 18 Blood Pressure 104/66 120/74 Pulse Oximetry 96 97 Oxygen Delivery 11/23/23 17:35 11/23/23 20:08 11/23/23 20:00 Temperature 98.2 F 97.8 F Pulse Rate 88 88 90 Respiratory Rate 18 20 Blood Pressure 107/57 L 110/59 L Pulse Oximetry 97 96 Oxygen Delivery 11/24/23 00:00 11/24/23 04:00 11/24/23 07:25 Temperature Pulse Rate 88 90 Respiratory Rate Blood Pressure Pulse Oximetry 96 Oxygen Delivery Room Air 11/24/23 09:52 11/24/23 08:00 Temperature Pulse Rate 89 Respiratory Rate Blood Pressure Pulse Oximetry Oxygen Delivery Room Air Intake/Output Intake/Output: Intake & Output 11/21/23 11/22/23 11/23/23 11/24/23 23:59 23:59 23:59 23:59 Intake Total 1580 100 Output Total 1200 770 Balance 380 -670 Meds/Results Medications: Active M
[2023-11-24 18:34] LABS: Glucose Point of Care 181 mg/dl (65-105)
[2023-11-25] VITALS (11 sets, daily range): BP systolic 93–120; BP diastolic 42–56; PULSE 86–104; RESP 16–20; TEMP 36.4–37; O2SAT 93–99
[2023-11-25 00:17] LABS: Glucose Point of Care 135 mg/dl (65-105)
[2023-11-25] MEDS: ALBUMIN HUMAN 25% 12.5 GM/50ML 50 ML IVPB ×3 (05:45→18:09)
[2023-11-25] MEDS: chlordiazePOXIDE (*CRX) 25 MG CAPSULE 50 MG PO ×3 (05:48→18:09)
[2023-11-25 06:07] LABS: Basophils Percent Auto 0.8 % (0.2-1.2); Eosinophils Absolute Auto 0.1 K/mm3 (0-0.3); Eosinophils Percent Auto 1.4 % (0-4.4); Hematocrit 22.7 % (42.0-52.0); Hemoglobin 7.5 g/dL (14.0-18.0); Immature Granulocyte Absolute 0.03 K/mm3 (0.00-0.031); Immature Granulocyte Percent A 0.8 % (0-0.5); Immature Platelet Fraction Pct 2.8 % (0.9-11.2); Lymphocytes Absolute Auto 1.01 K/mm3 (0.9-3.2); Lymphocytes Percent Auto 27.3 % (18.3-44.2); Mean Corpuscular Hemoglobin 36.9 pg (26-34); Mean Corpuscular Volume 111.8 fl (80-100); Mean Platelet Volume 9.8 fl (7.4-10.4); Monocytes Absolute Auto 0.3 K/mm3 (0.1-0.6); Monocytes Percent Auto 8.1 % (2.6-8.5); Neutrophils Absolute Auto 2.3 K/mm3 (1.3-6.7); Neutrophils Percent Auto 61.6 % (45.5-73.1); Platelet Count Result 38 k/mm3 (150-375); Red Blood Count 2.03 M/mm3 (4.6-6.20); Red Cell Distribution Width 21.9 % (11.5-14.5); White Blood Count 3.7 K/mm3 (4.5-10.0)
[2023-11-25 06:13] LABS: INR 2.9; Prothrombin Time 32.6 Seconds (11.1-14.7)
[2023-11-25 06:14] LABS: Partial Thromboplastin Time 51.4 Seconds (22.3-36.8)
[2023-11-25 06:22] LABS: Alanine Aminotransferase 23 U/L (6-50); Albumin Level 3.1 g/dL (3.5-5.1); Alkaline Phosphatase 155 U/L (38-126); Anion Gap 3 mmol/L (8-16); Aspartate Amino Transferase 53 U/L (17-59); Bilirubin,Total 18.6 mg/dL (0.2-1.3); Blood Urea Nitrogen 13 mg/dL (9-20); Calcium 8.3 mg/dL (8.4-10.2); Carbon Dioxide 28 mmol/L (22-30); Chloride 101 mmol/L (98-107); Estimated CRCL calculation 182 ml/min; Estimated Glomerular Filt Rate > 60; Glucose 119 mg/dL (65-110); Potassium 3.7 mmol/L (3.4-5.0); Sodium 132 mmol/L (137-145)
--- NOTE | 2023-11-25 06:59 | P.PNIM_ITS ---
Progress Note: A&P Assessment and Plan (1) Decompensation of cirrhosis of liver: Code(s): K72.90 - Hepatic failure, unspecified without coma; K74.60 - Unspecified cirrhosis of liver Status: Acute (2) Alcohol dependence: Qualifiers: Substance use status: other alcohol-induced disorder Qualified Code(s): F10.288 - Alcohol dependence with other alcohol-induced disorder Code(s): F10.20 - Alcohol dependence, uncomplicated Status: Acute (3) Ascites: Qualifiers: Ascites type: due to alcoholic cirrhosis Qualified Code(s): K70.31 - Alcoholic cirrhosis of liver with ascites Code(s): R18.8 - Other ascites Status: Acute (4) Anasarca: Code(s): R60.1 - Generalized edema Status: Acute (5) Pancytopenia: Code(s): D61.818 - Other pancytopenia Status: Acute (6) Coagulopathy: Code(s): D68.9 - Coagulation defect, unspecified Status: Acute (7) Acute liver failure: Code(s): K72.00 - Acute and subacute hepatic failure without coma Status: Acute (8) Alcoholic hepatitis: Code(s): K70.10 - Alcoholic hepatitis without ascites Status: Acute Plan Hepatic Failure: Cirrhosis * ?H&H 6.6/20.1 this, 2 units PRBC ordered and will continue to monitor? * ?iron studies ordered * ?AST/ALT 132/35/TBill 18.4 * ?paracentesis on hold INR and PLT currently to low * CT ABD Ascites/cirrhosis * ?peritoneal fluid for analysis ordered * ?albumin Q6 * started on spironolactone 100 mg and Lasix 40 mg daily * patient reports his PCP is referring to [facility] analyst * MELD score 27 * ETOH cessation * Ammonia 50 Asymptomatic * GI consulted for further recommendations * daily Coag's 11/24: * GI giving vitamin K x3 * INR still 2.9/ PLT paracentesis still on hold * starting lactulose BID * may need to transfuse plt to get paracentesis * npo tonight in hopes for paracentesis 11/25 ETOH abuse: * Thiamine, folic acid, and multi-vitamin * PPI daily * Ativan PRN * CIWA daily * Monitor and replenish electrolytes as needed * Seizure precautions if indicated Anasarca/Ascites: Secondary to cirrhosis * spironolactone/lasix * paracentesis when Hgb/PLT stable * albumin q6hr Pancytopenia: Secondary to acute liver failure * 2 Units PRBC transfused * Hgb 11/23 7.3 * PLT 38 * Transfuse PRBC if Hgb <7.0 * Transfuse PLT <20 Code status: Full code per patient DVT prophylaxis: SCD's Stress ulcer prophylaxis: Protonix 40 BID PT/OT notes: Ambulatory Disposition: Patient continues admission to the medical unit for acute liver failure with ascites will need to undergo paracentesis and studies once coag's are stable. Patient reports he has been referred to a [place] analyst by his PCP for continued treatment O/P obliviously if patient decompensates he will need transferred. Encouraged immediate ETOH cessation. Time Spent With Patient Time with patient: 15 - 25 minutes Subjective Date/time seen: 11/25/23 06:59 Interval history: Medical Record: this is a 53-year-old male with past medical history significant for alcohol dependence, hepatic cirrhosis, tobacco dependence.? Patient presents to the emergency room due to abdominal distension, leg swelling, increased abdominal girth, jaundice.? Has had chills.? Denies any hematemesis, coffee-ground emesis, melena, or bright red blood per rectum.? Preliminary workup showed moderate amount of ascites present.? Patient art
--- NOTE | 2023-11-25 06:59 | PM.IMPN ---
Progress Note: A&P Assessment and Plan (1) Decompensation of cirrhosis of liver: Code(s): K72.90 - Hepatic failure, unspecified without coma; K74.60 - Unspecified cirrhosis of liver Status: Acute (2) Alcohol dependence: Qualifiers: Substance use status: other alcohol-induced disorder Qualified Code(s): F10.288 - Alcohol dependence with other alcohol-induced disorder Code(s): F10.20 - Alcohol dependence, uncomplicated Status: Acute (3) Ascites: Qualifiers: Ascites type: due to alcoholic cirrhosis Qualified Code(s): K70.31 - Alcoholic cirrhosis of liver with ascites Code(s): R18.8 - Other ascites Status: Acute (4) Anasarca: Code(s): R60.1 - Generalized edema Status: Acute (5) Pancytopenia: Code(s): D61.818 - Other pancytopenia Status: Acute (6) Coagulopathy: Code(s): D68.9 - Coagulation defect, unspecified Status: Acute (7) Acute liver failure: Code(s): K72.00 - Acute and subacute hepatic failure without coma Status: Acute (8) Alcoholic hepatitis: Code(s): K70.10 - Alcoholic hepatitis without ascites Status: Acute Plan Hepatic Failure: Cirrhosis ?H&H 6.6/20.1 this, 2 units PRBC ordered and will continue to monitor? ?iron studies ordered ?AST/ALT 132/35/TBill 18.4 ?paracentesis on hold INR and PLT currently to low CT ABD Ascites/cirrhosis ?peritoneal fluid for analysis ordered ?albumin Q6 started on spironolactone 100 mg and Lasix 40 mg daily patient reports his PCP is referring to cotton weigher operator MELD score 27 ETOH cessation Ammonia 50 Asymptomatic GI consulted for further recommendations daily Coag's 11/24: GI giving vitamin K x3 INR still 2.9/ PLT paracentesis still on hold starting lactulose BID may need to transfuse plt to get paracentesis npo tonight in hopes for paracentesis 11/25 ETOH abuse: Thiamine, folic acid, and multi-vitamin PPI daily Ativan PRN CIWA daily Monitor and replenish electrolytes as needed Seizure precautions if indicated Anasarca/Ascites: Secondary to cirrhosis spironolactone/lasix paracentesis when Hgb/PLT stable albumin q6hr Pancytopenia: Secondary to acute liver failure 2 Units PRBC transfused Hgb 11/23 7.3 PLT 38 Transfuse PRBC if Hgb <7.0 Transfuse PLT <20 Code status: Full code per patient DVT prophylaxis: SCD's Stress ulcer prophylaxis: Protonix 40 BID PT/OT notes: Ambulatory Disposition: Patient continues admission to the medical unit for acute liver failure with ascites will need to undergo paracentesis and studies once coag's are stable. Patient reports he has been referred to a cotton weigher operator by his PCP for continued treatment O/P obliviously if patient decompensates he will need transferred. Encouraged immediate ETOH cessation. Time Spent With Patient Time with patient: 15 - 25 minutes Subjective Date/time seen: 11/25/23 06:59 Interval history: Medical Record: this is a 53-year-old male with past medical history significant for alcohol dependence, hepatic cirrhosis, tobacco dependence.? Patient presents to the emergency room due to abdominal distension, leg swelling, increased abdominal girth, jaundice.? Has had chills.? Denies any hematemesis, coffee-ground emesis, melena, or bright red blood per rectum.? Preliminary workup showed moderate amount of ascites present.? Patient has been admitted for further evaluation management and treatment. 11/22: Medical Record Patient in no acute distress this morning. He denies abdominal pain. His legs are still quite swollen, pitting edema and his skin is jaundiced. He reports his PCP is in the process of referring him to cotton weigher operator, but he is not yet established. He will receive 2 units PRBC today and recheck 2 hours post. Continue to trend and monitor. Consider GI consult or transfer if further decompensation. Paracentesis on hold until aft
[2023-11-25 07:04] LABS: Crenated RBC 1+; Platelet Estimate Decreased (Adequate); Poikilocytosis 1+
[2023-11-25 07:05] LABS: Schistocytes 1+
[2023-11-25 07:08] LABS: Glucose Point of Care 215 mg/dl (65-105)
[2023-11-25] MEDS: SPIRONOLACTONE 50 MG TABLET 100 MG PO (08:44)
[2023-11-25] MEDS: lisinopriL 10 MG TABLET PO (08:45)
[2023-11-25] MEDS: PHYTONADIONE 5 MG TABLET PO (08:45)
[2023-11-25] MEDS: FUROSEMIDE INJ 40 MG/4 ML VIAL IV PUSH (08:45)
[2023-11-25] MEDS: THIAMINE HCL 100 MG TABLET PO (08:45)
[2023-11-25] MEDS: FOLIC ACID 1 MG TABLET PO (08:45)
[2023-11-25] MEDS: SERTRALINE HCL 50 MG TABLET PO (08:45)
[2023-11-25] MEDS: PANTOPRAZOLE SODIUM IV 40 MG VIAL IV PUSH ×2 (08:46→20:30)
[2023-11-25] MEDS: NICOTINE (*PBKC) 21 MG PATCH 1 PATCH TRANSDERM (08:46)
--- NOTE | 2023-11-25 10:43 | WPDGIPROGNO ---
Progress Note: A&P Assessment and Plan (1) Decompensation of cirrhosis of liver: Code(s): K72.90 - Hepatic failure, unspecified without coma; K74.60 - Unspecified cirrhosis of liver Status: Acute Assessment and Plan: he has high meld score and discriminant function [facility] prognosis is guarded specially if he does not stop drinking he will need to get established with hepatology (2) Alcohol dependence: Qualifiers: Substance use status: other alcohol-induced disorder Qualified Code(s): F10.288 - Alcohol dependence with other alcohol-induced disorder Code(s): F10.20 - Alcohol dependence, uncomplicated Status: Acute Assessment and Plan: [facility] protocol thiamine, nutrition support (3) Pancytopenia: Code(s): D61.818 - Other pancytopenia Status: Acute Assessment and Plan: from cirrhosis, may have bone marrow dysfunction from alcohol he received blood transfusion on admission no overt gib but monitor (4) Ascites: Qualifiers: Ascites type: due to alcoholic cirrhosis Qualified Code(s): K70.31 - Alcoholic cirrhosis of liver with ascites Code(s): R18.8 - Other ascites Status: Acute Assessment and Plan: pending paracentesis- high inr and low platelets, will check cell count and saag (5) Anasarca: Code(s): R60.1 - Generalized edema Status: Acute (6) Coagulopathy: Code(s): D68.9 - Coagulation defect, unspecified Status: Acute Assessment and Plan: vitamin k ordered (7) Alcoholic hepatitis: Code(s): K70.10 - Alcoholic hepatitis without ascites Status: Acute Assessment and Plan: medical support he will need to establish with hepatology Subjective Date/time seen: 11/25/23 10:43 Interval history: no changes, paracentesis postponed because high inr/low platelets Review of Systems Review of Systems: All systems reviewed & are unremarkable except as noted in HPI and below Exam Const: General: comfortable Other: chronically ill appearing, jaundice HENMT: Face/Nose/Sinus: Normal nares present Eyes: Sclera: scleral abnormality (icteric) bilateral (scleral icterus) Neck: Neck: supple Resp: Effort & Inspection: normal respiratory effort Auscultation: clear to auscultation bilaterally Cardio: Rate: regular rate Rhythm: regular rhythm GI: Inspection: distended GI Palp: No Tenderness to palpation present (GI) and Yes Ascites present Percussion: Yes Fluid wave present Auscultation: normal bowel sounds Skin: Other: icteric Neuro: Speech: normal speech Motor exam (neuro): 5/5 motor strength present throughout Extrem: General: edema bilateral and pedal edema Psych: Affect: normal affect Objective Data Vital Signs Vital Signs: Vital Signs - 24 hr 11/24/23 12:00 11/24/23 14:15 11/24/23 16:00 Temperature 98.6 F Pulse Rate 89 95 95 Respiratory Rate 20 Blood Pressure 105/62 Pulse Oximetry 95 Oxygen Delivery 11/24/23 20:15 11/24/23 20:00 11/25/23 00:00 Temperature 97.5 F L Pulse Rate 86 90 90 Respiratory Rate 18 Blood Pressure 136/72 Pulse Oximetry 96 Oxygen Delivery 11/24/23 22:12 11/25/23 04:00 11/25/23 06:13 Temperature 98.6 F Pulse Rate 98 89 Respiratory Rate 18 Blood Pressure 109/42 L Pulse Oximetry 96 94 Oxygen Delivery Room Air 11/25/23 08:43 11/25/23 08:34 11/25/23 08:00 Temperature Pulse Rate 94 99 Respiratory Rate 18 Blood Pressure 120/56 L Pulse Oximetry 94 Oxygen Delivery Room Air Intake/Output Intake/Output: Intake & Output 11/22/23 11/23/23 11/24/23 11/25/23 23:59 23:59 23:59 23:59 Intake Total 1580 440 290 Output Total 1200 1370 Balance 380 -930 290 Meds/Results Medications: Active Medications Generic Name Dose Route Start Last Admin Trade Name Maurilioq PRN Reason Stop Dose Admin Chlordiazepoxide HCl 50 mg 11/23/23 00:35 11/25/23
[2023-11-25] MEDS: LACTULOSE 20 GM/30 ML UDC PO ×2 (12:16→18:09)
[2023-11-25 12:27] LABS: Glucose Point of Care 139 mg/dl (65-105)
[2023-11-25 17:27] LABS: Glucose Point of Care 144 mg/dl (65-105)
[2023-11-25 20:51] LABS: Glucose Point of Care 150 mg/dl (65-105)
[2023-11-26] VITALS (23 sets, daily range): BP systolic 98–125; BP diastolic 44–60; PULSE 80–97; RESP 12–22; TEMP 36.3–36.8; O2SAT 94–99
[2023-11-26 00:42] LABS: Glucose Point of Care 190 mg/dl (65-105)
[2023-11-26] MEDS: chlordiazePOXIDE (*CRX) 25 MG CAPSULE 50 MG PO ×3 (00:55→17:27)
[2023-11-26] MEDS: ALBUMIN HUMAN 25% 12.5 GM/50ML 50 ML IVPB ×4 (00:55→17:28)
[2023-11-26 06:00] LABS: Basophils Percent Auto 0.5 % (0.2-1.2); Eosinophils Percent Auto 1.1 % (0-4.4); Hematocrit 21.5 % (42.0-52.0); Immature Granulocyte Absolute 0.02 K/mm3 (0.00-0.031); Immature Granulocyte Percent A 0.5 % (0-0.5); Lymphocytes Absolute Auto 0.77 K/mm3 (0.9-3.2); Lymphocytes Percent Auto 20.9 % (18.3-44.2); Mean Corpuscular HGB Conc 32.6 g/dl (32-36); Mean Corpuscular Hemoglobin 36.6 pg (26-34); Mean Corpuscular Volume 112.6 fl (80-100); Mean Platelet Volume 9.9 fl (7.4-10.4); Monocytes Absolute Auto 0.3 K/mm3 (0.1-0.6); Monocytes Percent Auto 8.7 % (2.6-8.5); Neutrophils Absolute Auto 2.5 K/mm3 (1.3-6.7); Neutrophils Percent Auto 68.3 % (45.5-73.1); Platelet Count Result 37 k/mm3 (150-375); Red Blood Count 1.91 M/mm3 (4.6-6.20); Red Cell Distribution Width 21.6 % (11.5-14.5); White Blood Count 3.7 K/mm3 (4.5-10.0)
[2023-11-26 06:08] LABS: INR 2.8; Prothrombin Time 31.6 Seconds (11.1-14.7)
[2023-11-26 06:09] LABS: Partial Thromboplastin Time 50.3 Seconds (22.3-36.8)
[2023-11-26 06:13] LABS: Alanine Aminotransferase 24 U/L (6-50); Albumin Level 3.5 g/dL (3.5-5.1); Alkaline Phosphatase 184 U/L (38-126); Anion Gap 4 mmol/L (8-16); Aspartate Amino Transferase 66 U/L (17-59); Bilirubin,Total 14.9 mg/dL (0.2-1.3); Blood Urea Nitrogen 13 mg/dL (9-20); Calcium 8.4 mg/dL (8.4-10.2); Carbon Dioxide 28 mmol/L (22-30); Chloride 101 mmol/L (98-107); Estimated CRCL calculation 182 ml/min; Estimated Glomerular Filt Rate > 60; Glucose 122 mg/dL (65-110); Potassium 4.1 mmol/L (3.4-5.0); Sodium 133 mmol/L (137-145)
[2023-11-26 06:36] LABS: Glucose Point of Care 141 mg/dl (65-105)
[2023-11-26 07:09] LABS: Anisocytosis 1+; Crenated RBC 1+; Platelet Estimate Decreased (Adequate); Schistocytes None Seen
[2023-11-26] MEDS: PANTOPRAZOLE SODIUM IV 40 MG VIAL IV PUSH ×2 (09:25→20:19)
[2023-11-26] MEDS: LACTULOSE 20 GM/30 ML UDC PO ×2 (09:25→17:27)
[2023-11-26] MEDS: FUROSEMIDE INJ 40 MG/4 ML VIAL IV PUSH ×2 (09:26→17:27)
[2023-11-26] MEDS: SPIRONOLACTONE 50 MG TABLET 100 MG PO (09:27)
[2023-11-26] MEDS: SERTRALINE HCL 50 MG TABLET PO (09:27)
[2023-11-26] MEDS: FOLIC ACID 1 MG TABLET PO (09:27)
[2023-11-26] MEDS: lisinopriL 10 MG TABLET PO (09:27)
[2023-11-26] MEDS: PHYTONADIONE 5 MG TABLET PO (09:27)
[2023-11-26] MEDS: THIAMINE HCL 100 MG TABLET PO (09:27)
[2023-11-26] MEDS: NICOTINE (*PBKC) 21 MG PATCH 1 PATCH TRANSDERM (09:28)
--- NOTE | 2023-11-26 09:47 | P.PNIM_ITS ---
Progress Note: A&P Assessment and Plan (1) Decompensation of cirrhosis of liver: Code(s): K72.90 - Hepatic failure, unspecified without coma; K74.60 - Unspecified cirrhosis of liver Status: Acute (2) Alcohol dependence: Qualifiers: Substance use status: other alcohol-induced disorder Qualified Code(s): F10.288 - Alcohol dependence with other alcohol-induced disorder Code(s): F10.20 - Alcohol dependence, uncomplicated Status: Acute (3) Ascites: Qualifiers: Ascites type: due to alcoholic cirrhosis Qualified Code(s): K70.31 - Alcoholic cirrhosis of liver with ascites Code(s): R18.8 - Other ascites Status: Acute (4) Anasarca: Code(s): R60.1 - Generalized edema Status: Acute (5) Pancytopenia: Code(s): D61.818 - Other pancytopenia Status: Acute (6) Coagulopathy: Code(s): D68.9 - Coagulation defect, unspecified Status: Acute (7) Acute liver failure: Code(s): K72.00 - Acute and subacute hepatic failure without coma Status: Acute (8) Alcoholic hepatitis: Code(s): K70.10 - Alcoholic hepatitis without ascites Status: Acute Plan Hepatic Failure: Cirrhosis * ?H&H 6.6/20.1 this, 2 units PRBC ordered and will continue to monitor? * ?iron studies ordered * ?AST/ALT 132/35/TBill 18.4 * ?paracentesis on hold INR and PLT currently to low * CT ABD Ascites/cirrhosis * ?peritoneal fluid for analysis ordered * ?albumin Q6 * started on spironolactone 100 mg and Lasix 40 mg daily * patient reports his PCP is referring to commercial announcer * MELD score 27 * ETOH cessation * Ammonia 50 Asymptomatic * GI consulted for further recommendations * daily Coag's 11/24: * GI giving vitamin K x3 * INR still 2.9/ PLT paracentesis still on hold * starting lactulose BID * may need to transfuse plt to get paracentesis * npo tonight in hopes for paracentesis 11/25 11/25: * F/U ammonia * Paracnetisis remains on old due to coag's 11/25: * INR 2.8/PLT 37/HGB 7.0 * transfuse 1 unit PRBC/PLT * Paracentesis still on hold ETOH abuse: * Thiamine, folic acid, and multi-vitamin * PPI daily * Ativan PRN * CIWA daily * Monitor and replenish electrolytes as needed * Seizure precautions if indicated Anasarca/Ascites: Secondary to cirrhosis * spironolactone/lasix * paracentesis when Hgb/PLT stable * albumin q6hr 11/25: * Increased IV lasix to BID due to receiving blood products today * 2+ non-pitting edema BLE/BUE Pancytopenia: Secondary to acute liver failure * 2 Units PRBC transfused * Hgb 11/23 7.3 * PLT 38 * Transfuse PRBC if Hgb <7.0 * Transfuse PLT <20 11/25: * INR 2.8/PLT 37/HGB 7.0 * transfuse 1 unit PRBC/PLT * Paracentesis still on hold Code status: Full code per patient DVT prophylaxis: SCD's Stress ulcer prophylaxis: Protonix 40 BID PT/OT notes: Ambulatory Disposition: Patient continues admission to the medical unit for acute liver failure with ascites will need to undergo paracentesis and studies once coag's are stable. Patient reports he has been referred to a commercial announcer by his PCP for continued treatment O/P obliviously if patient decompensates he will need transferred. Encouraged immediate ETOH cessation. Time Spent With Patient Time with patient: 15 - 25 minutes Subjective Date/time seen: 11/26/23 09:47 Interval history: Medical Record: this is a 53-year-old male with
--- NOTE | 2023-11-26 09:47 | PM.IMPN ---
Progress Note: A&P Assessment and Plan (1) Decompensation of cirrhosis of liver: Code(s): K72.90 - Hepatic failure, unspecified without coma; K74.60 - Unspecified cirrhosis of liver Status: Acute (2) Alcohol dependence: Qualifiers: Substance use status: other alcohol-induced disorder Qualified Code(s): F10.288 - Alcohol dependence with other alcohol-induced disorder Code(s): F10.20 - Alcohol dependence, uncomplicated Status: Acute (3) Ascites: Qualifiers: Ascites type: due to alcoholic cirrhosis Qualified Code(s): K70.31 - Alcoholic cirrhosis of liver with ascites Code(s): R18.8 - Other ascites Status: Acute (4) Anasarca: Code(s): R60.1 - Generalized edema Status: Acute (5) Pancytopenia: Code(s): D61.818 - Other pancytopenia Status: Acute (6) Coagulopathy: Code(s): D68.9 - Coagulation defect, unspecified Status: Acute (7) Acute liver failure: Code(s): K72.00 - Acute and subacute hepatic failure without coma Status: Acute (8) Alcoholic hepatitis: Code(s): K70.10 - Alcoholic hepatitis without ascites Status: Acute Plan Hepatic Failure: Cirrhosis ?H&H 6.6/20.1 this, 2 units PRBC ordered and will continue to monitor? ?iron studies ordered ?AST/ALT 132/35/TBill 18.4 ?paracentesis on hold INR and PLT currently to low CT ABD Ascites/cirrhosis ?peritoneal fluid for analysis ordered ?albumin Q6 started on spironolactone 100 mg and Lasix 40 mg daily patient reports his PCP is referring to engineer technical staff MELD score 27 ETOH cessation Ammonia 50 Asymptomatic GI consulted for further recommendations daily Coag's 11/24: GI giving vitamin K x3 INR still 2.9/ PLT paracentesis still on hold starting lactulose BID may need to transfuse plt to get paracentesis npo tonight in hopes for paracentesis 11/25 11/25: F/U ammonia Paracnetisis remains on old due to coag's 11/25: INR 2.8/PLT 37/HGB 7.0 transfuse 1 unit PRBC/PLT Paracentesis still on hold ETOH abuse: Thiamine, folic acid, and multi-vitamin PPI daily Ativan PRN CIWA daily Monitor and replenish electrolytes as needed Seizure precautions if indicated Anasarca/Ascites: Secondary to cirrhosis spironolactone/lasix paracentesis when Hgb/PLT stable albumin q6hr 11/25: Increased IV lasix to BID due to receiving blood products today 2+ non-pitting edema BLE/BUE Pancytopenia: Secondary to acute liver failure 2 Units PRBC transfused Hgb 11/23 7.3 PLT 38 Transfuse PRBC if Hgb <7.0 Transfuse PLT <20 11/25: INR 2.8/PLT 37/HGB 7.0 transfuse 1 unit PRBC/PLT Paracentesis still on hold Code status: Full code per patient DVT prophylaxis: SCD's Stress ulcer prophylaxis: Protonix 40 BID PT/OT notes: Ambulatory Disposition: Patient continues admission to the medical unit for acute liver failure with ascites will need to undergo paracentesis and studies once coag's are stable. Patient reports he has been referred to a engineer technical staff by his PCP for continued treatment O/P obliviously if patient decompensates he will need transferred. Encouraged immediate ETOH cessation. Time Spent With Patient Time with patient: 15 - 25 minutes Subjective Date/time seen: 11/26/23 09:47 Interval history: Medical Record: this is a 53-year-old male with past medical history significant for alcohol dependence, hepatic cirrhosis, tobacco dependence.? Patient presents to the emergency room due to abdominal distension, leg swelling, increased abdominal girth, jaundice.? Has had chills.? Denies any hematemesis, coffee-ground emesis, melena, or bright red blood per rectum.? Preliminary workup showed moderate amount of ascites present.? Patient has been admitted for further evaluation management and treatment. 11/22: Medical Record Patient in no acute distress this morning. He denies abdominal pain. His legs are
[2023-11-26 10:52] LABS: Ammonia 44 umol/L (9-30)
[2023-11-26 12:22] LABS: Glucose Point of Care 161 mg/dl (65-105)
[2023-11-26] MEDS: SODIUM CHLORIDE 0.9% IV 250 ML 30 ML IV CONT ×2 (14:00→18:55)
--- NOTE | 2023-11-26 15:42 | WPDGIPROGNO ---
Progress Note: A&P Assessment and Plan (1) Decompensation of cirrhosis of liver: Code(s): K72.90 - Hepatic failure, unspecified without coma; K74.60 - Unspecified cirrhosis of liver Status: Acute Assessment and Plan: he has high meld score and discriminant function [facility] prognosis is guarded specially if he does not stop drinking today at bedside, she says that he was drinking after they had problem in their marriage 4-5 years ago, apparently he was told about cirrhosis ~ June 2023 and he has not had the chance to see incising machine operator he will need to get established with hepatology, will send referral to u (2) Alcohol dependence: Qualifiers: Substance use status: other alcohol-induced disorder Qualified Code(s): F10.288 - Alcohol dependence with other alcohol-induced disorder Code(s): F10.20 - Alcohol dependence, uncomplicated Status: Acute Assessment and Plan: [facility] protocol thiamine, nutrition support (3) Pancytopenia: Code(s): D61.818 - Other pancytopenia Status: Acute Assessment and Plan: from cirrhosis, may have bone marrow dysfunction from alcohol no overt gib but monitor (4) Ascites: Qualifiers: Ascites type: due to alcoholic cirrhosis Qualified Code(s): K70.31 - Alcoholic cirrhosis of liver with ascites Code(s): R18.8 - Other ascites Status: Acute Assessment and Plan: pending paracentesis- high inr and low platelets, will check cell count and saag (5) Anasarca: Code(s): R60.1 - Generalized edema Status: Acute (6) Coagulopathy: Code(s): D68.9 - Coagulation defect, unspecified Status: Acute Assessment and Plan: vitamin k ordered will give FFP today (7) Alcoholic hepatitis: Code(s): K70.10 - Alcoholic hepatitis without ascites Status: Acute Assessment and Plan: medical support he will need to establish with hepatology Subjective Date/time seen: 11/26/23 15:42 Interval history: no changes Review of Systems Review of Systems: All systems reviewed & are unremarkable except as noted in HPI and below Exam Const: General: comfortable Other: chronically ill appearing, jaundice HENMT: Face/Nose/Sinus: Normal nares present Eyes: Sclera: scleral abnormality (icteric) bilateral (scleral icterus) Neck: Neck: supple Resp: Effort & Inspection: normal respiratory effort Auscultation: clear to auscultation bilaterally Cardio: Rate: regular rate Rhythm: regular rhythm GI: Inspection: distended GI Palp: No Tenderness to palpation present (GI) and Yes Ascites present Percussion: Yes Fluid wave present Auscultation: normal bowel sounds Skin: Other: icteric Neuro: Speech: normal speech Motor exam (neuro): 5/5 motor strength present throughout Extrem: General: edema bilateral and pedal edema Psych: Affect: normal affect Objective Data Vital Signs Vital Signs: Vital Signs - 24 hr 11/25/23 15:55 11/25/23 16:00 11/25/23 19:58 Temperature 98.4 F 97.6 F Pulse Rate 95 104 H 86 Respiratory Rate 16 18 Blood Pressure 96/50 L 101/54 L Pulse Oximetry 96 93 Oxygen Delivery 11/25/23 20:00 11/25/23 20:00 11/25/23 20:00 Temperature Pulse Rate 88 87 Respiratory Rate 18 Blood Pressure 104/56 L Pulse Oximetry 95 Oxygen Delivery Room Air 11/25/23 23:46 11/26/23 00:00 11/26/23 03:33 Temperature 97.7 F Pulse Rate 90 Respiratory Rate 18 Blood Pressure 114/45 L 114/45 L 108/56 L Pulse Oximetry 99 Oxygen Delivery 11/26/23 00:00 11/26/23 04:00 11/26/23 04:00 Temperature 98.3 F Pulse Rate 97 88 87 Respiratory Rate 18 Blood Pressure 125/60 Pulse Oximetry 97 Oxygen Delivery 11/26/23 08:00 11/26/23 09:40 11/26/23 08:00 Temperature 97.8 F Pulse Rate 80 83 Respiratory Rate 12 Blood Pressure 115/54 L Pulse Oximetry 95 Oxygen Delivery Room Air 11/26/23 12
[2023-11-27] VITALS (21 sets, daily range): BP systolic 92–129; BP diastolic 41–70; PULSE 68–98; RESP 14–19; TEMP 36.1–36.8; O2SAT 92–100
[2023-11-27 00:02] LABS: Glucose Point of Care 165 mg/dl (65-105)
[2023-11-27] MEDS: chlordiazePOXIDE (*CRX) 25 MG CAPSULE 50 MG PO ×3 (00:02→18:40)
[2023-11-27] MEDS: ALBUMIN HUMAN 25% 12.5 GM/50ML 50 ML IVPB ×5 (02:02→23:06)
[2023-11-27 06:23] LABS: Glucose Point of Care 110 mg/dl (65-105)
--- NOTE | 2023-11-27 07:05 | P.PNIM_ITS ---
Progress Note: A&P Assessment and Plan (1) Decompensation of cirrhosis of liver: Code(s): K72.90 - Hepatic failure, unspecified without coma; K74.60 - Unspecified cirrhosis of liver Status: Acute (2) Alcohol dependence: Qualifiers: Substance use status: other alcohol-induced disorder Qualified Code(s): F10.288 - Alcohol dependence with other alcohol-induced disorder Code(s): F10.20 - Alcohol dependence, uncomplicated Status: Acute (3) Ascites: Qualifiers: Ascites type: due to alcoholic cirrhosis Qualified Code(s): K70.31 - Alcoholic cirrhosis of liver with ascites Code(s): R18.8 - Other ascites Status: Acute (4) Anasarca: Code(s): R60.1 - Generalized edema Status: Acute (5) Pancytopenia: Code(s): D61.818 - Other pancytopenia Status: Acute (6) Coagulopathy: Code(s): D68.9 - Coagulation defect, unspecified Status: Acute (7) Acute liver failure: Code(s): K72.00 - Acute and subacute hepatic failure without coma Status: Acute (8) Alcoholic hepatitis: Code(s): K70.10 - Alcoholic hepatitis without ascites Status: Acute Plan Hepatic Failure: Cirrhosis * ?H&H 6.6/20.1 this, 2 units PRBC ordered and will continue to monitor? * ?iron studies ordered * ?AST/ALT 132/35/TBill 18.4 * ?paracentesis on hold INR and PLT currently to low * CT ABD Ascites/cirrhosis * ?peritoneal fluid for analysis ordered * ?albumin Q6 * started on spironolactone 100 mg and Lasix 40 mg daily * patient reports his PCP is referring to dot compliance specialist * MELD score 27 * ETOH cessation * Ammonia 50 Asymptomatic * GI consulted for further recommendations * daily Coag's 11/24: * GI giving vitamin K x3 * INR still 2.9/ PLT paracentesis still on hold * starting lactulose BID * may need to transfuse plt to get paracentesis * npo tonight in hopes for paracentesis 11/25 11/25: * F/U ammonia * Paracnetisis remains on old due to coag's 11/25: * INR 2.8/PLT 37/HGB 7.0 * transfuse 1 unit PRBC/PLT * Paracentesis still on hold 11/26: * PLT 5/INR 2.4 * will have paracentesis today ETOH abuse: * Thiamine, folic acid, and multi-vitamin * PPI daily * Ativan PRN * CIWA daily * Monitor and replenish electrolytes as needed * Seizure precautions if indicated Anasarca/Ascites: Secondary to cirrhosis * spironolactone/lasix * paracentesis when Hgb/PLT stable * albumin q6hr 11/25: * Increased IV lasix to BID due to receiving blood products today * 2+ non-pitting edema BLE/BUE Pancytopenia: Secondary to acute liver failure * 2 Units PRBC transfused * Hgb 11/23 7.3 * PLT 38 * Transfuse PRBC if Hgb <7.0 * Transfuse PLT <20 11/25: * INR 2.8/PLT 37/HGB 7.0 * transfuse 1 unit PRBC/2 units PLT * Paracentesis still on hold 11/26: * Hgb 6.9 transfused one unit Code status: Full code per patient DVT prophylaxis: SCD's Stress ulcer prophylaxis: Protonix 40 BID PT/OT notes: Ambulatory Disposition: Patient continues admission to the medical unit for acute liver failure with ascites will need to undergo paracentesis and studies once coag's are stable. Patient reports he has been referred to a dot compliance specialist by his PCP for continued treatment O/P obliviously if patient decompensates he will need transferred. Encouraged immediate ETOH cessation. Time Spent With Patient Time with patient: 15 - 25 minutes Subjective Date/time seen:
--- NOTE | 2023-11-27 07:05 | PM.IMPN ---
Progress Note: A&P Assessment and Plan (1) Decompensation of cirrhosis of liver: Code(s): K72.90 - Hepatic failure, unspecified without coma; K74.60 - Unspecified cirrhosis of liver Status: Acute (2) Alcohol dependence: Qualifiers: Substance use status: other alcohol-induced disorder Qualified Code(s): F10.288 - Alcohol dependence with other alcohol-induced disorder Code(s): F10.20 - Alcohol dependence, uncomplicated Status: Acute (3) Ascites: Qualifiers: Ascites type: due to alcoholic cirrhosis Qualified Code(s): K70.31 - Alcoholic cirrhosis of liver with ascites Code(s): R18.8 - Other ascites Status: Acute (4) Anasarca: Code(s): R60.1 - Generalized edema Status: Acute (5) Pancytopenia: Code(s): D61.818 - Other pancytopenia Status: Acute (6) Coagulopathy: Code(s): D68.9 - Coagulation defect, unspecified Status: Acute (7) Acute liver failure: Code(s): K72.00 - Acute and subacute hepatic failure without coma Status: Acute (8) Alcoholic hepatitis: Code(s): K70.10 - Alcoholic hepatitis without ascites Status: Acute Plan Hepatic Failure: Cirrhosis ?H&H 6.6/20.1 this, 2 units PRBC ordered and will continue to monitor? ?iron studies ordered ?AST/ALT 132/35/TBill 18.4 ?paracentesis on hold INR and PLT currently to low CT ABD Ascites/cirrhosis ?peritoneal fluid for analysis ordered ?albumin Q6 started on spironolactone 100 mg and Lasix 40 mg daily patient reports his PCP is referring to fulling mill operator MELD score 27 ETOH cessation Ammonia 50 Asymptomatic GI consulted for further recommendations daily Coag's 11/24: GI giving vitamin K x3 INR still 2.9/ PLT paracentesis still on hold starting lactulose BID may need to transfuse plt to get paracentesis npo tonight in hopes for paracentesis 11/25 11/25: F/U ammonia Paracnetisis remains on old due to coag's 11/25: INR 2.8/PLT 37/HGB 7.0 transfuse 1 unit PRBC/PLT Paracentesis still on hold 11/26: PLT 5/INR 2.4 will have paracentesis today ETOH abuse: Thiamine, folic acid, and multi-vitamin PPI daily Ativan PRN CIWA daily Monitor and replenish electrolytes as needed Seizure precautions if indicated Anasarca/Ascites: Secondary to cirrhosis spironolactone/lasix paracentesis when Hgb/PLT stable albumin q6hr 11/25: Increased IV lasix to BID due to receiving blood products today 2+ non-pitting edema BLE/BUE Pancytopenia: Secondary to acute liver failure 2 Units PRBC transfused Hgb 11/23 7.3 PLT 38 Transfuse PRBC if Hgb <7.0 Transfuse PLT <20 11/25: INR 2.8/PLT 37/HGB 7.0 transfuse 1 unit PRBC/2 units PLT Paracentesis still on hold 11/26: Hgb 6.9 transfused one unit Code status: Full code per patient DVT prophylaxis: SCD's Stress ulcer prophylaxis: Protonix 40 BID PT/OT notes: Ambulatory Disposition: Patient continues admission to the medical unit for acute liver failure with ascites will need to undergo paracentesis and studies once coag's are stable. Patient reports he has been referred to a fulling mill operator by his PCP for continued treatment O/P obliviously if patient decompensates he will need transferred. Encouraged immediate ETOH cessation. Time Spent With Patient Time with patient: 15 - 25 minutes Subjective Date/time seen: 11/27/23 07:05 Interval history: Medical Record: this is a 53-year-old male with past medical history significant for alcohol dependence, hepatic cirrhosis, tobacco dependence.? Patient presents to the emergency room due to abdominal distension, leg swelling, increased abdominal girth, jaundice.? Has had chills.? Denies any hematemesis, coffee-ground emesis, melena, or bright red blood per rectum.? Preliminary workup showed moderate amount of ascites present.? Patient has been admitted for further evaluation management and treatment. 11/22:
[2023-11-27 07:09] LABS: Basophils Percent Auto 0.6 % (0.2-1.2); Eosinophils Absolute Auto 0.1 K/mm3 (0-0.3); Eosinophils Percent Auto 1.5 % (0-4.4); Immature Granulocyte Absolute 0.03 K/mm3 (0.00-0.031); Immature Granulocyte Percent A 0.9 % (0-0.5); Immature Platelet Fraction Pct 1.9 % (0.9-11.2); Lymphocytes Absolute Auto 0.74 K/mm3 (0.9-3.2); Lymphocytes Percent Auto 21.7 % (18.3-44.2); Mean Corpuscular HGB Conc 32.9 g/dl (32-36); Mean Corpuscular Hemoglobin 35.8 pg (26-34); Mean Corpuscular Volume 108.8 fl (80-100); Mean Platelet Volume 9.5 fl (7.4-10.4); Monocytes Absolute Auto 0.3 K/mm3 (0.1-0.6); Monocytes Percent Auto 9.1 % (2.6-8.5); Neutrophils Absolute Auto 2.3 K/mm3 (1.3-6.7); Neutrophils Percent Auto 66.2 % (45.5-73.1); Platelet Count Result 54 k/mm3 (150-375); Red Blood Count 1.93 M/mm3 (4.6-6.20); Red Cell Distribution Width 23.2 % (11.5-14.5); White Blood Count 3.4 K/mm3 (4.5-10.0)
[2023-11-27 07:17] LABS: INR 2.4; Prothrombin Time 27.9 Seconds (11.1-14.7)
[2023-11-27 07:35] LABS: Hemoglobin 6.9 g/dL (14.0-18.0)
[2023-11-27 08:01] LABS: Alanine Aminotransferase 21 U/L (6-50); Albumin Level 3.4 g/dL (3.5-5.1); Alkaline Phosphatase 137 U/L (38-126); Anion Gap 6 mmol/L (8-16); Aspartate Amino Transferase 47 U/L (17-59); Bilirubin,Total 16.6 mg/dL (0.2-1.3); Blood Urea Nitrogen 12 mg/dL (9-20); Calcium 8.4 mg/dL (8.4-10.2); Carbon Dioxide 27 mmol/L (22-30); Chloride 99 mmol/L (98-107); Estimated CRCL calculation 158 ml/min; Estimated Glomerular Filt Rate > 60; Glucose 117 mg/dL (65-110); Potassium 3.9 mmol/L (3.4-5.0); Sodium 132 mmol/L (137-145)
[2023-11-27] MEDS: SERTRALINE HCL 50 MG TABLET PO (09:15)
[2023-11-27] MEDS: LACTULOSE 20 GM/30 ML UDC PO ×2 (09:16→18:35)
[2023-11-27] MEDS: FUROSEMIDE INJ 40 MG/4 ML VIAL IV PUSH ×2 (09:16→18:35)
[2023-11-27] MEDS: NICOTINE (*PBKC) 21 MG PATCH 1 PATCH TRANSDERM (09:16)
[2023-11-27] MEDS: PANTOPRAZOLE SODIUM IV 40 MG VIAL IV PUSH ×2 (09:16→21:58)
[2023-11-27] MEDS: FOLIC ACID 1 MG TABLET PO (09:16)
[2023-11-27] MEDS: lisinopriL 10 MG TABLET PO (09:16)
[2023-11-27] MEDS: SPIRONOLACTONE 50 MG TABLET 100 MG PO (09:16)
[2023-11-27] MEDS: THIAMINE HCL 100 MG TABLET PO (09:16)
[2023-11-27] MEDS: PHYTONADIONE 5 MG TABLET PO (09:18)
[2023-11-27 11:40] LABS: Actin Antibody (IgG) 61 U (<20)
[2023-11-27 12:49] LABS: Glucose Point of Care 172 mg/dl (65-105)
--- NOTE | 2023-11-27 13:30 | PCPTNOTE ---
Attempted PT evaluation, pt too drowsy to safely participate in skilled therapy at this time. Will follow.
--- NOTE | 2023-11-27 15:07 | WPDGIPROGNO ---
Progress Note: A&P Assessment and Plan (1) Decompensation of cirrhosis of liver: Code(s): K72.90 - Hepatic failure, unspecified without coma; K74.60 - Unspecified cirrhosis of liver Status: Acute Assessment and Plan: he has high meld score and discriminant function residential prognosis is guarded specially if he does not stop drinking I think he has alcoholic hepatitis, will start on methylprednisolone (work up for other chronic liver conditions pending but actin IgG Ab is high- could indicate autoimmune hepatitis but also can be high in someone with alcoholic hepatitis), he will be on steroids for now to treat possible eoth hepatitis which is also rx for AIH. Will also send a referral to [facility] hepatology (2) Alcoholic hepatitis: Code(s): K70.10 - Alcoholic hepatitis without ascites Status: Acute Assessment and Plan: medical support nutrition support (3) Alcohol dependence: Qualifiers: Substance use status: other alcohol-induced disorder Qualified Code(s): F10.288 - Alcohol dependence with other alcohol-induced disorder Code(s): F10.20 - Alcohol dependence, uncomplicated Status: Acute Assessment and Plan: [facility] thi[facility], nutrition support (4) Pancytopenia: Code(s): D61.818 - Other pancytopenia Status: Acute Assessment and Plan: from cirrhosis, may have bone marrow dysfunction from alcohol no overt gib but monitor (5) Ascites: Qualifiers: Ascites type: due to alcoholic cirrhosis Qualified Code(s): K70.31 - Alcoholic cirrhosis of liver with ascites Code(s): R18.8 - Other ascites Status: Acute Assessment and Plan: pending paracentesis- high inr and low platelets, will check cell count and saag (6) Anasarca: Code(s): R60.1 - Generalized edema Status: Acute (7) Coagulopathy: Code(s): D68.9 - Coagulation defect, unspecified Status: Acute Assessment and Plan: vitamin k and yesterday had FFP Subjective Date/time seen: 11/27/23 15:07 Interval history: he is eating, no changes Review of Systems Review of Systems: All systems reviewed & are unremarkable except as noted in HPI and below Exam Const: General: comfortable Other: chronically ill appearing, jaundice HENMT: Face/Nose/Sinus: Normal nares present Eyes: Sclera: scleral abnormality (icteric) bilateral (scleral icterus) Neck: Neck: supple Resp: Effort & Inspection: normal respiratory effort Auscultation: clear to auscultation bilaterally Cardio: Rate: regular rate Rhythm: regular rhythm GI: Inspection: distended GI Palp: No Tenderness to palpation present (GI) and Yes Ascites present Percussion: Yes Fluid wave present Auscultation: normal bowel sounds Skin: Other: icteric Neuro: Speech: normal speech Motor exam (neuro): 5/5 motor strength present throughout Extrem: General: edema bilateral and pedal edema Psych: Affect: normal affect Objective Data Vital Signs Vital Signs: Vital Signs - 24 hr 11/26/23 15:22 11/26/23 16:22 11/26/23 16:00 Temperature 98 F 98.2 F Pulse Rate 87 88 88 Respiratory Rate 20 22 H Blood Pressure 120/60 109/44 L Pulse Oximetry 97 97 Oxygen Delivery 11/26/23 18:47 11/26/23 18:48 11/26/23 16:00 Temperature 97.6 F 97.3 F L 97.6 F Pulse Rate 89 88 89 Respiratory Rate 22 H 20 22 H Blood Pressure 125/59 L 99/46 L 125/59 L Pulse Oximetry 98 97 98 Oxygen Delivery 11/26/23 19:03 11/26/23 19:03 11/26/23 20:03 Temperature 97.3 F L 97.3 F L 97.3 F L Pulse Rate 82 82 89 Respiratory Rate 20 20 20 Blood Pressure 102/50 L 102/50 L 105/44 L Pulse Oximetry 99 97 97 Oxygen Delivery 11/26/23 20:00 11/26/23 20:00 11/26/23 20:00 Temperature 97.3 F L Pulse Rate 89 89 Respiratory Rate 20 Blood Pressure 105/44 L 105/44 L Pulse Oximetry 97 Oxygen Delivery 11/26/23 20:00 11/26/23 21:03 11/26/23 22:27 [place]
[2023-11-27 16:01] LABS: Appearance Peritoneal Fluid Cloudy (Clear); Source Peritoneal Fluid Peritoneal Fluid
[2023-11-27 16:02] LABS: Color Peritoneal Fluid Brown (Colorless); RBC Peritoneal Fluid 24000 /uL (0-100000)
[2023-11-27 16:15] LABS: Lymphocytes Peritoneal Fluid 21 %; Macrophages Peritoneal Fluid 46 %; Mesothelial Cells Peritoneal Fluid 12 %; Neutrophils Peritoneal Fluid 21 % (0-25)
[2023-11-27 16:16] LABS: Nucleated Cells Peritoneal Flu 409 /uL (0-500)
[2023-11-27] MEDS: SODIUM CHLORIDE 0.9% IV 250 ML 30 ML IV CONT (16:50)
[2023-11-27 17:49] LABS: Glucose Point of Care 130 mg/dl (65-105)
[2023-11-28] VITALS (11 sets, daily range): BP systolic 104–119; BP diastolic 50–63; PULSE 63–94; RESP 12–20; TEMP 36–36.6; O2SAT 94–98
[2023-11-28 01:11] LABS: Glucose Point of Care 121 mg/dl (65-105)
[2023-11-28 05:42] LABS: Basophils Percent Auto 0.9 % (0.2-1.2); Eosinophils Absolute Auto 0.1 K/mm3 (0-0.3); Eosinophils Percent Auto 1.9 % (0-4.4); Hematocrit 23.8 % (42.0-52.0); Hemoglobin 7.9 g/dL (14.0-18.0); Immature Granulocyte Absolute 0.03 K/mm3 (0.00-0.031); Immature Granulocyte Percent A 0.9 % (0-0.5); Immature Platelet Fraction Pct 2.4 % (0.9-11.2); Lymphocytes Absolute Auto 0.76 K/mm3 (0.9-3.2); Mean Corpuscular HGB Conc 33.2 g/dl (32-36); Mean Corpuscular Hemoglobin 35.1 pg (26-34); Mean Corpuscular Volume 105.8 fl (80-100); Mean Platelet Volume 9.6 fl (7.4-10.4); Monocytes Absolute Auto 0.4 K/mm3 (0.1-0.6); Neutrophils Absolute Auto 1.9 K/mm3 (1.3-6.7); Neutrophils Percent Auto 61.3 % (45.5-73.1); Platelet Count Result 52 k/mm3 (150-375); Red Blood Count 2.25 M/mm3 (4.6-6.20); White Blood Count 3.2 K/mm3 (4.5-10.0)
[2023-11-28 05:52] LABS: INR 2.8; Prothrombin Time 31.2 Seconds (11.1-14.7)
[2023-11-28 05:53] LABS: Partial Thromboplastin Time 51.8 Seconds (22.3-36.8)
[2023-11-28 05:58] LABS: Alanine Aminotransferase 22 U/L (6-50); Albumin Level 3.2 g/dL (3.5-5.1); Alkaline Phosphatase 105 U/L (38-126); Anion Gap 5 mmol/L (4-12); Aspartate Amino Transferase 48 U/L (17-59); Bilirubin,Total 18.4 mg/dL (0.2-1.3); Blood Urea Nitrogen 13 mg/dL (9-20); Calcium 8.5 mg/dL (8.4-10.2); Carbon Dioxide 31 mmol/L (22-30); Chloride 98 mmol/L (98-107); Estimated CRCL calculation 178 ml/min; Estimated Glomerular Filt Rate > 60; Glucose 109 mg/dL (65-110); Potassium 3.8 mmol/L (3.4-5.0); Sodium 134 mmol/L (137-145)
[2023-11-28] MEDS: chlordiazePOXIDE (*CRX) 25 MG CAPSULE 50 MG PO (06:26)
[2023-11-28] MEDS: ALBUMIN HUMAN 25% 12.5 GM/50ML 50 ML IVPB ×4 (06:29→23:50)
[2023-11-28 06:58] LABS: Glucose Point of Care 128 mg/dl (65-105)
[2023-11-28] MEDS: lisinopriL 10 MG TABLET PO (08:40)
[2023-11-28] MEDS: THIAMINE HCL 100 MG TABLET PO (08:40)
[2023-11-28] MEDS: SERTRALINE HCL 50 MG TABLET PO (08:40)
[2023-11-28] MEDS: FOLIC ACID 1 MG TABLET PO (08:40)
[2023-11-28] MEDS: NICOTINE (*PBKC) 21 MG PATCH 1 PATCH TRANSDERM (08:40)
[2023-11-28] MEDS: LACTULOSE 20 GM/30 ML UDC PO ×2 (08:40→17:54)
[2023-11-28] MEDS: SPIRONOLACTONE 50 MG TABLET 100 MG PO (08:40)
[2023-11-28] MEDS: FUROSEMIDE INJ 40 MG/4 ML VIAL IV PUSH ×2 (08:40→17:51)
[2023-11-28] MEDS: PANTOPRAZOLE SODIUM IV 40 MG VIAL IV PUSH ×2 (08:40→21:58)
[2023-11-28] MEDS: prednisoLONE ORAL SOLN 30 MG/10 ML SOLUTION 40 MG PO (08:40)
[2023-11-28 12:01] LABS: Glucose Point of Care 212 mg/dl (65-105)
--- NOTE | 2023-11-28 12:45 | P.PNIM_ITS ---
Progress Note: A&P Assessment and Plan (1) Decompensation of cirrhosis of liver: Code(s): K72.90 - Hepatic failure, unspecified without coma; K74.60 - Unspecified cirrhosis of liver Status: Acute Assessment and Plan: * 11/23/23?H&H 6.6.1 this, 2 units PRBC ordered and will continue to monitor? * Iron studies suggest anemia of chronic disease * AST/ALT / TBill 18.4 * CT abdomen and pelvis showing ascites/cirrhosis * [id number] Q6H, started on spironolactone 100 mg and Lasix 40 mg daily * patient reports his PCP is referring to eating disorder specialist * MELD score 27, Ammonia now WNL, daily Coag's * ETOH cessation discussed in length * GI consulted for further recommendations * 11/26/23 hemoglobin of 7 and transfuse 1 unit of PRBCs * Due to patients low platelets and high INR paracentesis was not done until 11/26 * Peritoneal fluid for analysis negative for infection (2) Alcohol dependence: Qualifiers: Substance use status: other alcohol-induced disorder Qualified Code(s): F10.288 - Alcohol dependence with other alcohol-induced disorder Code(s): F10.20 - Alcohol dependence, uncomplicated Status: Acute Assessment and Plan: Alcohol cessation discussed with the patient. * Patient originally started on Librium 50 mg q.6. * Due to increased somnolence this was discontinued and recommended for a CIWA score greater than 12. * Ativan 2 mg Q to for CIWA score greater than 15. * Thiamine, folic acid, and multi-vitamin * PPI daily * CIWA daily * Seizure precautions if indicated (3) Acute liver failure: Code(s): K72.00 - Acute and subacute hepatic failure without coma Status: Acute Assessment and Plan: * GI thinks he has alcoholic hepatitis * Started on methylprednisolone (work up for other chronic liver conditions pending but actin IgG Ab is high- could indicate autoimmune hepatitis but also can be high in someone with alcoholic hepatitis), he will be on steroids for now to treat possible eoth hepatitis which is also rx for AIH. * GI will also send a referral to [facility] hepatology (4) Ascites: Qualifiers: Ascites type: due to alcoholic cirrhosis Qualified Code(s): K70.31 - Alcoholic cirrhosis of liver with ascites Code(s): R18.8 - Other ascites Status: Acute Assessment and Plan: * spironolactone/lasix * paracentesis 11/27/23 negative for infection. Yielded 1450 mL of dark brownish fluid. * albumin q6hr (5) Anasarca: Code(s): R60.1 - Generalized edema Status: Acute Assessment and Plan: * albumin q.6 hours * Lasix 40 mg IV BID (6) Pancytopenia: Code(s): D61.818 - Other pancytopenia Status: Acute Assessment and Plan: * 2 Units PRBC transfused on 11/24/23 * Transfuse PRBC if Hgb <7.0 * Transfuse PLT <20 * 11/26 Hgb 6.9 transfused one unit (7) Coagulopathy: Code(s): D68.9 - Coagulation defect, unspecified Status: Acute Assessment and Plan: Patient received vitamin K during hospitalization and FFP (8) Alcoholic hepatitis: Code(s): K70.10 - Alcoholic hepatitis without ascites Status: Acute Assessment and Plan: * GI thinks he has alcoholic hepatitis * Started on methylprednisolone (work up for other chronic liver conditions pending but actin IgG Ab is high- could indicate autoimmune hepatitis but also can be high in someone with alcoholic hepa
--- NOTE | 2023-11-28 12:45 | PM.IMPN ---
Progress Note: A&P Assessment and Plan (1) Decompensation of cirrhosis of liver: Code(s): K72.90 - Hepatic failure, unspecified without coma; K74.60 - Unspecified cirrhosis of liver Status: Acute Assessment and Plan: 11/23/23?H&H 6.6/20.1 this, 2 units PRBC ordered and will continue to monitor? 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 shooter helper MELD score 27, Ammonia now WNL, daily Coag's ETOH cessation discussed in length GI consulted for further recommendations 11/26/23 hemoglobin of 7 and transfuse 1 unit of PRBCs Due to patients low platelets and high INR paracentesis was not done until 11/26 Peritoneal fluid for analysis negative for infection (2) Alcohol dependence: Qualifiers: Substance use status: other alcohol-induced disorder Qualified Code(s): F10.288 - Alcohol dependence with other alcohol-induced disorder Code(s): F10.20 - Alcohol dependence, uncomplicated Status: Acute Assessment and Plan: Alcohol cessation discussed with the patient. Patient originally started on Librium 50 mg q.6. Due to increased somnolence this was discontinued and recommended for a CIWA score greater than 12. Ativan 2 mg Q to for CIWA score greater than 15. Thiamine, folic acid, and multi-vitamin PPI daily CIWA daily Seizure precautions if indicated (3) Acute liver failure: Code(s): K72.00 - Acute and subacute hepatic failure without coma Status: Acute Assessment and Plan: GI thinks he has alcoholic hepatitis Started on methylprednisolone (work up for other chronic liver conditions pending but actin IgG Ab is high- could indicate autoimmune hepatitis but also can be high in someone with alcoholic hepatitis), he will be on steroids for now to treat possible eoth hepatitis which is also rx for AIH. GI will also send a referral to [facility] hepatology (4) Ascites: Qualifiers: Ascites type: due to alcoholic cirrhosis Qualified Code(s): K70.31 - Alcoholic cirrhosis of liver with ascites Code(s): R18.8 - Other ascites Status: Acute Assessment and Plan: spironolactone/lasix paracentesis 11/27/23 negative for infection. Yielded 1450 mL of dark brownish fluid. albumin q6hr (5) Anasarca: Code(s): R60.1 - Generalized edema Status: Acute Assessment and Plan: albumin q.6 hours Lasix 40 mg IV BID (6) Pancytopenia: Code(s): D61.818 - Other pancytopenia Status: Acute Assessment and Plan: 2 Units PRBC transfused on 11/24/23 Transfuse PRBC if Hgb <7.0 Transfuse PLT <20 11/26 Hgb 6.9 transfused one unit (7) Coagulopathy: Code(s): D68.9 - Coagulation defect, unspecified Status: Acute Assessment and Plan: Patient received vitamin K during hospitalization and FFP (8) Alcoholic hepatitis: Code(s): K70.10 - Alcoholic hepatitis without ascites Status: Acute Assessment and Plan: GI thinks he has alcoholic hepatitis Started on methylprednisolone (work up for other chronic liver conditions pending but actin IgG Ab is high- could indicate autoimmune hepatitis but also can be high in someone with alcoholic hepatitis), he will be on steroids for now to treat possible eoth hepatitis which is also rx for AIH. VINI will also send a referral to [facility] hepatology Subjective Date/time seen: 11/28/23 12:45 Interval history: Patient is lethargic upon in the room. He is still oriented x4. He denies new pain. He appears overtly jaundice. He denies any abdominal pain, nausea, vomiting, chest pain, shortness a breath. He has recently been started on treatment for Alcoholic hepatitis. 14:40 discussed with VINI
--- NOTE | 2023-11-28 14:13 | WPDGIPROGNO ---
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 given persistent jaundice with severe alcoholic hepatitis and coagulopathy/pancytopenia recommend transfer to tertiary hospital with hepatology support (family also asking for transfer) (2) Alcoholic hepatitis: Code(s): K70.10 - Alcoholic hepatitis without ascites Status: Acute Assessment and Plan: medical support nutrition support on steroid now (3) Alcohol dependence: Qualifiers: Substance use status: other alcohol-induced disorder Qualified Code(s): F10.288 - Alcohol dependence with other alcohol-induced disorder Code(s): F10.20 - Alcohol dependence, uncomplicated Status: Acute Assessment and Plan: ciwa protocol thiamine, nutrition support librium discontinued given somnolence he is also on lactulose for PSE (4) Pancytopenia: Code(s): D61.818 - Other pancytopenia Status: Acute Assessment and Plan: from cirrhosis, may have bone marrow dysfunction from alcohol no overt gib but monitor (5) Ascites: Qualifiers: Ascites type: due to alcoholic cirrhosis Qualified Code(s): K70.31 - Alcoholic cirrhosis of liver with ascites Code(s): R18.8 - Other ascites Status: Acute Assessment and Plan: had paracentesis, no evidence of SBP (6) Anasarca: Code(s): R60.1 - Generalized edema Status: Acute (7) Coagulopathy: Code(s): D68.9 - Coagulation defect, unspecified Status: Acute Assessment and Plan: vitamin k and FFP Subjective Date/time seen: 11/28/23 14:13 Interval history: he is sleeping more- scheduled dose of librium was discontinued Review of Systems Review of Systems: All systems reviewed & are unremarkable except as noted in HPI and below Exam Const: General: comfortable Other: chronically ill appearing, jaundice HENMT: Face/Nose/Sinus: Normal nares present Eyes: Sclera: scleral abnormality (icteric) bilateral (scleral icterus) Neck: Neck: supple Resp: Effort & Inspection: normal respiratory effort Auscultation: clear to auscultation bilaterally Cardio: Rate: regular rate Rhythm: regular rhythm GI: Inspection: distended GI Palp: No Tenderness to palpation present (GI) and Yes Ascites present Percussion: Yes Fluid wave present Auscultation: normal bowel sounds Skin: Other: icteric Neuro: Speech: normal speech Other: more sleepy today Extrem: General: edema bilateral and pedal edema Psych: Affect: normal affect Objective Data Vital Signs Vital Signs: Vital Signs - 24 hr 11/27/23 15:34 11/27/23 15:49 11/27/23 16:00 Temperature 97 F L 97.2 F L 98.2 F Pulse Rate 88 86 84 Respiratory Rate 16 16 18 Blood Pressure 101/54 L 114/51 L 129/58 L Pulse Oximetry 100 98 96 Oxygen Delivery Oxygen Flow Rate 11/27/23 16:49 11/27/23 17:49 11/27/23 18:32 Temperature 97.2 F L 98.2 F 98 F Pulse Rate 83 87 86 Respiratory Rate 18 16 16 Blood Pressure 129/58 L 92/53 L 95/57 L Pulse Oximetry 97 99 98 Oxygen Delivery Oxygen Flow Rate 11/27/23 18:50 11/27/23 16:00 11/27/23 19:55 Temperature 97.6 F Pulse Rate 85 68 Respiratory Rate 14 Blood Pressure 112/57 L Pulse Oximetry 93 95 Oxygen Delivery Oxygen Flow Rate 2 11/28/23 00:55 11/27/23 20:00 11/26
[2023-11-28 18:06] LABS: Glucose Point of Care 214 mg/dl (65-105)
[2023-11-29] VITALS (9 sets, daily range): BP systolic 102–124; BP diastolic 48–55; PULSE 75–96; RESP 14–18; TEMP 36.1–36.6; O2SAT 95–100
[2023-11-29 00:41] LABS: Glucose Point of Care 245 mg/dl (65-105)
[2023-11-29 05:58] LABS: Glucose Point of Care 221 mg/dl (65-105)
[2023-11-29 06:03] LABS: Basophils Percent Auto 0.2 % (0.2-1.2); Hematocrit 23.4 % (42.0-52.0); Hemoglobin 7.7 g/dL (14.0-18.0); Immature Granulocyte Absolute 0.02 K/mm3 (0.00-0.031); Immature Granulocyte Percent A 0.5 % (0-0.5); Immature Platelet Fraction Pct 3.4 % (0.9-11.2); Lymphocytes Absolute Auto 0.61 K/mm3 (0.9-3.2); Lymphocytes Percent Auto 15.2 % (18.3-44.2); Mean Corpuscular HGB Conc 32.9 g/dl (32-36); Mean Corpuscular Volume 106.4 fl (80-100); Mean Platelet Volume 9.8 fl (7.4-10.4); Monocytes Absolute Auto 0.3 K/mm3 (0.1-0.6); Neutrophils Percent Auto 75.1 % (45.5-73.1); Platelet Count Result 53 k/mm3 (150-375); Red Cell Distribution Width 23.2 % (11.5-14.5)
[2023-11-29 06:11] LABS: INR 2.7; Prothrombin Time 30.9 Seconds (11.1-14.7)
[2023-11-29 06:12] LABS: Partial Thromboplastin Time 52.4 Seconds (22.3-36.8)
[2023-11-29 06:19] LABS: Alanine Aminotransferase 22 U/L (6-50); Albumin Level 3.5 g/dL (3.5-5.1); Alkaline Phosphatase 129 U/L (38-126); Anion Gap 6 mmol/L (4-12); Aspartate Amino Transferase 44 U/L (17-59); Bilirubin,Total 16.8 mg/dL (0.2-1.3); Blood Urea Nitrogen 16 mg/dL (9-20); Calcium 8.8 mg/dL (8.4-10.2); Carbon Dioxide 29 mmol/L (22-30); Chloride 98 mmol/L (98-107); Estimated CRCL calculation 146 ml/min; Estimated Glomerular Filt Rate > 60; Glucose 199 mg/dL (65-110); Sodium 133 mmol/L (137-145)
[2023-11-29] MEDS: ALBUMIN HUMAN 25% 12.5 GM/50ML 50 ML IVPB ×3 (06:41→18:07)
[2023-11-29 06:50] LABS: Anisocytosis 1+; Platelet Estimate Decreased (Adequate); Schistocytes 1+
[2023-11-29 06:51] LABS: Crenated RBC 1+
[2023-11-29] MEDS: LACTULOSE 20 GM/30 ML UDC PO ×2 (08:21→18:07)
[2023-11-29] MEDS: THIAMINE HCL 100 MG TABLET PO (08:21)
[2023-11-29] MEDS: lisinopriL 10 MG TABLET PO (08:21)
[2023-11-29] MEDS: SERTRALINE HCL 50 MG TABLET PO (08:21)
[2023-11-29] MEDS: FOLIC ACID 1 MG TABLET PO (08:21)
[2023-11-29] MEDS: FUROSEMIDE INJ 40 MG/4 ML VIAL IV PUSH ×2 (08:21→18:07)
[2023-11-29] MEDS: SPIRONOLACTONE 50 MG TABLET 100 MG PO (08:21)
[2023-11-29] MEDS: PANTOPRAZOLE SODIUM IV 40 MG VIAL IV PUSH ×2 (08:22→20:35)
[2023-11-29] MEDS: VANCOMYCIN 1,500 MG/NS 500 ML 1,500 MG/500 ML BAG 250 MG IVPB ×2 (08:22→20:35)
[2023-11-29] MEDS: prednisoLONE ORAL SOLN 30 MG/10 ML SOLUTION 40 MG PO (08:23)
[2023-11-29] MEDS: NICOTINE (*PBKC) 21 MG PATCH 1 PATCH TRANSDERM (08:26)
[2023-11-29 12:03] LABS: LKM 1 Antibody <=20.0 U (<=20.0)
[2023-11-29 12:25] LABS: Glucose Point of Care 236 mg/dl (65-105)
[2023-11-29 12:46] LABS: Hemoglobin A1C 4.3 % (<5.7)
--- NOTE | 2023-11-29 12:51 | PC.NURSE ---
On 11/29/23, the student, [Carmella Leiva], provided care and completed [facility] documentation on this patient. I have reviewed the student's documentation and agree with the findings.
--- NOTE | 2023-11-29 13:07 | PCNWS ---
Weekly nutritional screen. Patient is tolerating current diet with adequate intake. Improved to 50-100 last 48 hours. Pt denies needs for any supplements. No weight loss reported. No nutritional needs at this time.
--- NOTE | 2023-11-29 15:06 | P.PNIM_ITS ---
Progress Note: A&P Assessment and Plan (1) Decompensation of cirrhosis of liver: Code(s): K72.90 - Hepatic failure, unspecified without coma; K74.60 - Unspecified cirrhosis of liver Status: Acute Assessment and Plan: * 11/23/23?H&H 6.6.1 this, 2 units PRBC ordered and will continue to monitor? * Iron studies suggest anemia of chronic disease * AST/ALT 44/ TBill 16.8 * CT abdomen and pelvis showing ascites/cirrhosis * Albumin 50cc Q6H, started on spironolactone 100 mg and Lasix 40 mg daily * patient reports his PCP is referring to food photographer * MELD score 27, Ammonia now WNL, daily Coag's * ETOH cessation discussed in length * GI consulted for further recommendations * 11/26/23 hemoglobin of 7 and transfuse 1 unit of PRBCs * Due to patients low platelets and high INR paracentesis was not done until 11/26 * Peritoneal fluid for analysis With cell count and normal ranges. Protein albumin LDH glucose amylase pending. * Gram stain positive for Gram-positive cocci in clusters. Started on Vancomycin. * Ascites fluid culture pending. (2) Alcohol dependence: Qualifiers: Substance use status: other alcohol-induced disorder Qualified Code(s): F10.288 - Alcohol dependence with other alcohol-induced disorder Code(s): F10.20 - Alcohol dependence, uncomplicated Status: Acute Assessment and Plan: Alcohol cessation discussed with the patient. * Patient originally started on Librium 50 mg q.6. * Due to increased somnolence this was discontinued and recommended for a CIWA score greater than 12. * Ativan 2 mg Q to for CIWA score greater than 15. * Thiamine, folic acid, and multi-vitamin * PPI daily * CIWA daily * Seizure precautions if indicated (3) Acute liver failure: Code(s): K72.00 - Acute and subacute hepatic failure without coma Status: Acute Assessment and Plan: * GI thinks he has alcoholic hepatitis * Started on methylprednisolone (work up for other chronic liver conditions pending but actin IgG Ab is high- could indicate autoimmune hepatitis but also can be high in someone with alcoholic hepatitis), he will be on steroids for now to treat possible eoth hepatitis which is also rx for AIH. * GI will also send a referral to [facility] hepatology (4) Ascites: Qualifiers: Ascites type: due to alcoholic cirrhosis Qualified Code(s): K70.31 - Alcoholic cirrhosis of liver with ascites Code(s): R18.8 - Other ascites Status: Acute Assessment and Plan: * spironolactone/lasix * paracentesis 11/27/23 negative for infection. Yielded 1450 mL of dark brownish fluid. * albumin q6hr (5) Anasarca: Code(s): R60.1 - Generalized edema Status: Acute Assessment and Plan: * albumin q.6 hours * Lasix 40 mg IV BID (6) Pancytopenia: Code(s): D61.818 - Other pancytopenia Status: Acute Assessment and Plan: * 2 Units PRBC transfused on 11/24/23 * Transfuse PRBC if Hgb <7.0 * Transfuse PLT <20 * 11/26 Hgb 6.9 transfused one unit (7) Coagulopathy: Code(s): D68.9 - Coagulation defect, unspecified Status: Acute Assessment and Plan: Patient received vitamin K during hospitalization and FFP (8) Alcoholic hepatitis: Code(s): K70.10 - Alcoholic hepatitis without ascites Status: Acute Assessment and Plan: * GI thinks he has alcoholic hepatitis * [place]
--- NOTE | 2023-11-29 15:06 | PM.IMPN ---
Progress Note: A&P Assessment and Plan (1) Decompensation of cirrhosis of liver: Code(s): K72.90 - Hepatic failure, unspecified without coma; K74.60 - Unspecified cirrhosis of liver Status: Acute Assessment and Plan: 11/23/23?H&H 6.6/20.1 this, 2 units PRBC ordered and will continue to monitor? 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 Protein albumin LDH glucose amylase pending. Gram stain positive for Gram-positive cocci in clusters. Started on Vancomycin. Ascites fluid culture pending. (2) Alcohol dependence: Qualifiers: Substance use status: other alcohol-induced disorder Qualified Code(s): F10.288 - Alcohol dependence with other alcohol-induced disorder Code(s): F10.20 - Alcohol dependence, uncomplicated Status: Acute Assessment and Plan: Alcohol cessation discussed with the patient. Patient originally started on Librium 50 mg q.6. Due to increased somnolence this was discontinued and recommended for a CIWA score greater than 12. Ativan 2 mg Q to for CIWA score greater than 15. Thiamine, folic acid, and multi-vitamin PPI daily CIWA daily Seizure precautions if indicated (3) Acute liver failure: Code(s): K72.00 - Acute and subacute hepatic failure without coma Status: Acute Assessment and Plan: GI thinks he has alcoholic hepatitis Started on methylprednisolone (work up for other chronic liver conditions pending but actin IgG Ab is high- could indicate autoimmune hepatitis but also can be high in someone with alcoholic hepatitis), he will be on steroids for now to treat possible eoth hepatitis which is also rx for AIH. GI will also send a referral to [facility] hepatology (4) Ascites: Qualifiers: Ascites type: due to alcoholic cirrhosis Qualified Code(s): K70.31 - Alcoholic cirrhosis of liver with ascites Code(s): R18.8 - Other ascites Status: Acute Assessment and Plan: spironolactone/lasix paracentesis 11/27/23 negative for infection. Yielded 1450 mL of dark brownish fluid. albumin q6hr (5) Anasarca: Code(s): R60.1 - Generalized edema Status: Acute Assessment and Plan: albumin q.6 hours Lasix 40 mg IV BID (6) Pancytopenia: Code(s): D61.818 - Other pancytopenia Status: Acute Assessment and Plan: 2 Units PRBC transfused on 11/24/23 Transfuse PRBC if Hgb <7.0 Transfuse PLT <20 11/26 Hgb 6.9 transfused one unit (7) Coagulopathy: Code(s): D68.9 - Coagulation defect, unspecified Status: Acute Assessment and Plan: Patient received vitamin K during hospitalization and FFP (8) Alcoholic hepatitis: Code(s): K70.10 - Alcoholic hepatitis without ascites Status: Acute Assessment and Plan: GI thinks he has alcoholic hepatitis Started on methylprednisolone (work up for other chronic liver conditions pending but actin IgG Ab is high- could indicate autoimmune hepatitis but also can be high in someone with alcoholic hepatitis), he will be on steroids for now to treat possible eoth hepatitis which is also rx for AIH. GI will also send a referral to [facility] hepatology Subjective Date/time seen: 11/29/23 15:06 Interval history: patient more awake today. He is A&O x4. Patient waiting on a bed at [facility]. Patient is pretty swollen and bilat
--- NOTE | 2023-11-29 16:38 | WPDGIPROGNO ---
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 (2) Alcoholic hepatitis: Code(s): K70.10 - Alcoholic hepatitis without ascites Status: Acute Assessment and Plan: medical support nutrition support on steroid now he is more awake today (3) Alcohol dependence: Qualifiers: Substance use status: other alcohol-induced disorder Qualified Code(s): F10.288 - Alcohol dependence with other alcohol-induced disorder Code(s): F10.20 - Alcohol dependence, uncomplicated Status: Acute Assessment and Plan: ciwa protocol thiamine, nutrition support librium discontinued given somnolence he is also on lactulose for PSE (4) Pancytopenia: Code(s): D61.818 - Other pancytopenia Status: Acute Assessment and Plan: from cirrhosis, may have bone marrow dysfunction from alcohol no overt gib but monitor (5) Ascites: Qualifiers: Ascites type: due to alcoholic cirrhosis Qualified Code(s): K70.31 - Alcoholic cirrhosis of liver with ascites Code(s): R18.8 - Other ascites Status: Acute Assessment and Plan: had paracentesis, no evidence of SBP (6) Anasarca: Code(s): R60.1 - Generalized edema Status: Acute (7) Coagulopathy: Code(s): D68.9 - Coagulation defect, unspecified Status: Acute Assessment and Plan: s/p vitamin k and FFP inr 2.7 today Subjective Date/time seen: 11/29/23 16:38 Interval history: he is more awake and back to his baseline after librium was discontinued Review of Systems Review of Systems: All systems reviewed & are unremarkable except as noted in HPI and below Exam Const: General: comfortable Other: chronically ill appearing, jaundice HENMT: Face/Nose/Sinus: Normal nares present Eyes: Sclera: scleral abnormality (icteric) bilateral (scleral icterus) Neck: Neck: supple Resp: Effort & Inspection: normal respiratory effort Auscultation: clear to auscultation bilaterally Cardio: Rate: regular rate Rhythm: regular rhythm GI: Inspection: distended GI Palp: No Tenderness to palpation present (GI) and Yes Ascites present Percussion: Yes Fluid wave present Auscultation: normal bowel sounds Skin: Other: icteric Neuro: Speech: normal speech Extrem: General: edema bilateral and pedal edema Psych: Affect: normal affect Objective Data Vital Signs Vital Signs: Vital Signs - 24 hr 11/28/23 20:00 11/28/23 22:12 11/29/23 00:00 Temperature 97.8 F Pulse Rate 77 63 80 Respiratory Rate 16 Blood Pressure 119/63 Pulse Oximetry 98 Oxygen Delivery 11/29/23 00:29 11/28/23 20:00 11/29/23 04:00 Temperature 97.6 F 97.8 F Pulse Rate 75 77 Respiratory Rate 16 16 Blood Pressure 107/55 L 103/48 L Pulse Oximetry 95 98 Oxygen Delivery Room Air 11/29/23 04:00 11/29/23 08:00 11/29/23 08:00 Temperature 96.9 F L Pulse Rate 80 84 84 Respiratory Rate 16 Blood Pressure 104/49 L Pulse Oximetry 100 Oxygen Delivery 11/29/23 08:00 11/29/23 12:00 11/29/23 12:00 Temperature 97.6 F Pulse Rate 84 85 Respiratory Rate 14 Blood Pressure 102/48 L Pulse Oximetry 97 Oxygen Delivery Room Air 11/29/23 16:00 Temperature 97.6 F Pulse Rate 82 Respiratory Ra
[2023-11-29 17:07] LABS: Glucose Point of Care 336 mg/dl (65-105)
[2023-11-29 20:24] LABS: Ceruloplasmin 19 mg/dL (18-36)
[2023-11-29 23:43] LABS: Glucose Point of Care 362 mg/dl (65-105)
[2023-11-30] VITALS (7 sets, daily range): BP systolic 112–120; BP diastolic 47–61; PULSE 79–96; RESP 17–20; TEMP 36.4–36.6; O2SAT 90–99
[2023-11-30] MEDS: ALBUMIN HUMAN 25% 12.5 GM/50ML 50 ML IVPB ×2 (00:18→06:13)
[2023-11-30] MEDS: INSULIN ASPART (*BKC) 100 UNITS/ML SUB-Q ×5 (01:16→21:43)
[2023-11-30 05:42] LABS: Basophils Percent Auto 0.3 % (0.2-1.2); Eosinophils Percent Auto 0.8 % (0-4.4); Hematocrit 22.8 % (42.0-52.0); Hemoglobin 7.3 g/dL (14.0-18.0); Immature Granulocyte Absolute 0.04 K/mm3 (0.00-0.031); Immature Platelet Fraction Pct 3.5 % (0.9-11.2); Lymphocytes Absolute Auto 0.59 K/mm3 (0.9-3.2); Lymphocytes Percent Auto 15.3 % (18.3-44.2); Mean Corpuscular Hemoglobin 34.8 pg (26-34); Mean Corpuscular Volume 108.6 fl (80-100); Mean Platelet Volume 9.8 fl (7.4-10.4); Monocytes Absolute Auto 0.5 K/mm3 (0.1-0.6); Monocytes Percent Auto 11.7 % (2.6-8.5); Neutrophils Absolute Auto 2.7 K/mm3 (1.3-6.7); Neutrophils Percent Auto 70.9 % (45.5-73.1); Platelet Count Result 52 k/mm3 (150-375); Red Cell Distribution Width 23.4 % (11.5-14.5); White Blood Count 3.9 K/mm3 (4.5-10.0)
[2023-11-30 05:47] LABS: INR 2.9; Partial Thromboplastin Time 45.2 Seconds (22.3-36.8); Prothrombin Time 32.4 Seconds (11.1-14.7)
[2023-11-30 05:55] LABS: Alanine Aminotransferase 24 U/L (6-50); Albumin Level 3.5 g/dL (3.5-5.1); Alkaline Phosphatase 193 U/L (38-126); Anion Gap 4 mmol/L (4-12); Aspartate Amino Transferase 44 U/L (17-59); Bilirubin,Total 14.5 mg/dL (0.2-1.3); Blood Urea Nitrogen 18 mg/dL (9-20); Calcium 8.7 mg/dL (8.4-10.2); Carbon Dioxide 31 mmol/L (22-30); Chloride 97 mmol/L (98-107); Estimated CRCL calculation 146 ml/min; Estimated Glomerular Filt Rate > 60; Glucose 342 mg/dL (65-110); Potassium 4.2 mmol/L (3.4-5.0); Sodium 132 mmol/L (137-145)
[2023-11-30 06:13] LABS: Glucose Point of Care 500 mg/dl (65-105)
[2023-11-30 06:20] LABS: Glucose Point of Care 364 mg/dl (65-105)
--- NOTE | 2023-11-30 06:23 | PC.NURSE ---
(time 0602) blood glucose reading of 500 is not accurate. BMP drawn at (0456) result of 342 and recheck of POC at (0611) result of 364.
[2023-11-30 06:24] LABS: Anisocytosis 1+; Crenated RBC 1+; Platelet Estimate Decreased (Adequate); Schistocytes Rare
[2023-11-30 08:08] LABS: Glucose Point of Care 297 mg/dl (65-105)
[2023-11-30] MEDS: VANCOMYCIN 1,500 MG/NS 500 ML 1,500 MG/500 ML BAG 125 MG IVPB ×2 (09:41→21:44)
[2023-11-30] MEDS: SERTRALINE HCL 50 MG TABLET PO (09:42)
[2023-11-30] MEDS: THIAMINE HCL 100 MG TABLET PO (09:42)
[2023-11-30] MEDS: FOLIC ACID 1 MG TABLET PO (09:42)
[2023-11-30] MEDS: lisinopriL 10 MG TABLET PO (09:42)
[2023-11-30] MEDS: LACTULOSE 20 GM/30 ML UDC PO ×2 (09:42→17:42)
[2023-11-30] MEDS: prednisoLONE ORAL SOLN 30 MG/10 ML SOLUTION 40 MG PO (09:43)
[2023-11-30] MEDS: NICOTINE (*PBKC) 21 MG PATCH 1 PATCH TRANSDERM (09:43)
[2023-11-30] MEDS: FUROSEMIDE INJ 40 MG/4 ML VIAL IV PUSH ×2 (09:43→17:42)
[2023-11-30] MEDS: SPIRONOLACTONE 50 MG TABLET 100 MG PO (09:43)
[2023-11-30 12:12] LABS: Glucose Point of Care 301 mg/dl (65-105)
[2023-11-30] MEDS: PANTOPRAZOLE SODIUM IV 40 MG VIAL IV PUSH ×2 (12:31→21:44)
--- NOTE | 2023-11-30 13:11 | P.PNIM_ITS ---
Progress Note: A&P Assessment and Plan (1) Decompensation of cirrhosis of liver: Code(s): K72.90 - Hepatic failure, unspecified without coma; K74.60 - Unspecified cirrhosis of liver Status: Acute Assessment and Plan: * 11/23/23?H&H 6.02/20.1 this, 2 units PRBC ordered and will continue to monitor? * Iron studies suggest anemia of chronic disease * AST/ALT 44/ TBill 14.5 * CT abdomen and pelvis showing ascites/cirrhosis * Spironolactone 100 mg and Lasix 40 mg daily * MELD score 27, Ammonia now WNL, daily Coag's * ETOH cessation discussed in length * GI consulted for further recommendations * 11/26/23 hemoglobin of 7 and transfuse 1 unit of PRBCs * Due to patients low platelets and high INR paracentesis was not done until 11/26 * Peritoneal fluid for analysis with cell count and normal ranges. Protein albumin LDH glucose amylase pending. * Gram stain positive for Gram-positive cocci in clusters. Started on Vancomycin. * Ascites fluid culture pending. * 11/29 albumin discontinued. Serum albumin and protein WNL. (2) Alcohol dependence: Qualifiers: Substance use status: other alcohol-induced disorder Qualified Code(s): F10.288 - Alcohol dependence with other alcohol-induced disorder Code(s): F10.20 - Alcohol dependence, uncomplicated Status: Acute Assessment and Plan: Alcohol cessation discussed with the patient. * Patient originally started on Librium 50 mg q.6. Due to increased somnolence this was discontinued and recommended for a CIWA score greater than 12. * Ativan 2 mg Q to for CIWA score greater than 15. * Thiamine, folic acid, and multi-vitamin * PPI daily * CIWA daily * Seizure precautions if indicated (3) Acute liver failure: Code(s): K72.00 - Acute and subacute hepatic failure without coma Status: Acute Assessment and Plan: * GI thinks he has alcoholic hepatitis * Started on methylprednisolone (work up for other chronic liver conditions pending but actin IgG Ab is high- could indicate autoimmune hepatitis but also can be high in someone with alcoholic hepatitis), he will be on steroids for now to treat possible eoth hepatitis which is also rx for AIH. * GI will also send a referral to [facility] hepatology (4) Ascites: Qualifiers: Ascites type: due to alcoholic cirrhosis Qualified Code(s): K70.31 - Alcoholic cirrhosis of liver with ascites Code(s): R18.8 - Other ascites Status: Acute Assessment and Plan: * spironolactone/lasix * paracentesis 11/27/23 negative for infection. Yielded 1450 mL of dark brownish fluid. (5) Anasarca: Code(s): R60.1 - Generalized edema Status: Acute Assessment and Plan: * Lasix 40 mg IV BID and PO spironolactone (6) Pancytopenia: Code(s): D61.818 - Other pancytopenia Status: Acute Assessment and Plan: * 2 Units PRBC transfused on 11/24/23 * Transfuse PRBC if Hgb <7.0 * Transfuse PLT <20 * 11/26 Hgb 6.9 transfused one unit (7) Coagulopathy: Code(s): D68.9 - Coagulation defect, unspecified Status: Acute Assessment and Plan: Patient received vitamin K during hospitalization and FFP (8) Alcoholic hepatitis: Code(s): K70.10 - Alcoholic hepatitis without ascites Status: Acute Assessment and Plan: * GI thinks he has alcoholic hepatitis * Started on methylprednisolone (work up for other chronic aubree
--- NOTE | 2023-11-30 13:11 | PM.IMPN ---
Progress Note: A&P Assessment and Plan (1) Decompensation of cirrhosis of liver: Code(s): K72.90 - Hepatic failure, unspecified without coma; K74.60 - Unspecified cirrhosis of liver Status: Acute Assessment and Plan: 11/23/23?H&H 6.02/20.1 this, 2 units PRBC ordered and will continue to monitor? Iron studies suggest anemia of chronic disease AST/ALT 44/[address] abdomen and pelvis showing ascites/cirrhosis Spironolactone 100 mg and Lasix 40 mg daily MELD score 27, Ammonia now WNL, daily Coag's ETOH cessation discussed in length GI consulted for further recommendations 11/26/23 hemoglobin of 7 and transfuse 1 unit of PRBCs Due to patients low platelets and high INR paracentesis was not done until 11/26 Peritoneal fluid for analysis with cell count and normal ranges. Protein albumin LDH glucose amylase pending. Gram stain positive for Gram-positive cocci in clusters. Started on Vancomycin. Ascites fluid culture pending. 11/29 albumin discontinued. Serum albumin and protein WNL. (2) Alcohol dependence: Qualifiers: Substance use status: other alcohol-induced disorder Qualified Code(s): F10.288 - Alcohol dependence with other alcohol-induced disorder Code(s): F10.20 - Alcohol dependence, uncomplicated Status: Acute Assessment and Plan: Alcohol cessation discussed with the patient. Patient originally started on Librium 50 mg q.6. Due to increased somnolence this was discontinued and recommended for a CIWA score greater than 12. Ativan 2 mg Q to for CIWA score greater than 15. Thiamine, folic acid, and multi-vitamin PPI daily CIWA daily Seizure precautions if indicated (3) Acute liver failure: Code(s): K72.00 - Acute and subacute hepatic failure without coma Status: Acute Assessment and Plan: GI thinks he has alcoholic hepatitis Started on methylprednisolone (work up for other chronic liver conditions pending but actin IgG Ab is high- could indicate autoimmune hepatitis but also can be high in someone with alcoholic hepatitis), he will be on steroids for now to treat possible eoth hepatitis which is also rx for AIH. GI will also send a referral to [facility] hepatology (4) Ascites: Qualifiers: Ascites type: due to alcoholic cirrhosis Qualified Code(s): K70.31 - Alcoholic cirrhosis of liver with ascites Code(s): R18.8 - Other ascites Status: Acute Assessment and Plan: spironolactone/lasix paracentesis 11/27/23 negative for infection. Yielded 1450 mL of dark brownish fluid. (5) Anasarca: Code(s): R60.1 - Generalized edema Status: Acute Assessment and Plan: Lasix 40 mg IV BID and PO spironolactone (6) Pancytopenia: Code(s): D61.818 - Other pancytopenia Status: Acute Assessment and Plan: 2 Units PRBC transfused on 11/24/23 Transfuse PRBC if Hgb <7.0 Transfuse PLT <20 11/26 Hgb 6.9 transfused one unit (7) Coagulopathy: Code(s): D68.9 - Coagulation defect, unspecified Status: Acute Assessment and Plan: Patient received vitamin K during hospitalization and FFP (8) Alcoholic hepatitis: Code(s): K70.10 - Alcoholic hepatitis without ascites Status: Acute Assessment and Plan: GI thinks he has alcoholic hepatitis Started on methylprednisolone (work up for other chronic liver conditions pending but actin IgG Ab is high- could indicate autoimmune hepatitis but also can be high in someone with alcoholic hepatitis), he will be on steroids for now to treat possible eoth hepatitis which is also rx for AIH. GI will also send a referral to [facility] hepatology Subjective Date/time seen: 11/30/23 13:11 Interval history: patient doing well today with very little complaints hollow he is still having some difficulty moving around but is getting better. He is much more awake.
--- NOTE | 2023-11-30 15:14 | PCOTNOTE ---
Upon entering the room, Patient sound asleep. Patient difficult to arouse and stay awake to converse. Patient verbalized, No, and quickly began snoring again. Therapist attempted to change Patient's positioning in the bed to arouse him more. Patient again stated, No , not today.
--- NOTE | 2023-11-30 15:25 | WPDGIPROGNO ---
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 at tertiary center with hepatology service currently on methylprednisolone given etoh hepatitis (also work up for other chronic liver conditions pending but actin IgG Ab is high- could indicate autoimmune hepatitis but also can be high in someone with alcoholic hepatitis) bili down to 14 from 18 (2) Alcoholic hepatitis: Code(s): K70.10 - Alcoholic hepatitis without ascites Status: Acute Assessment and Plan: medical support nutrition support on steroid now (3) Alcohol dependence: Qualifiers: Substance use status: other alcohol-induced disorder Qualified Code(s): F10.288 - Alcohol dependence with other alcohol-induced disorder Code(s): F10.20 - Alcohol dependence, uncomplicated Status: Acute Assessment and Plan: ciwa protocol thiamine, nutrition support librium was discontinued, he is fully awake now he is also on lactulose for PSE (4) Pancytopenia: Code(s): D61.818 - Other pancytopenia Status: Acute Assessment and Plan: from cirrhosis, may have bone marrow dysfunction from alcohol no overt gib but monitor (5) Ascites: Qualifiers: Ascites type: due to alcoholic cirrhosis Qualified Code(s): K70.31 - Alcoholic cirrhosis of liver with ascites Code(s): R18.8 - Other ascites Status: Acute Assessment and Plan: had paracentesis, no evidence of SBP (6) Anasarca: Code(s): R60.1 - Generalized edema Status: Acute (7) Coagulopathy: Code(s): D68.9 - Coagulation defect, unspecified Status: Acute Assessment and Plan: s/p vitamin k and FFP inr 2.7 today Subjective Date/time seen: 11/30/23 15:25 Interval history: no changes, he is comfortable sitting up in recliner Review of Systems Review of Systems: All systems reviewed & are unremarkable except as noted in HPI and below Exam Const: General: comfortable Other: chronically ill appearing, jaundice HENMT: Face/Nose/Sinus: Normal nares present Eyes: Sclera: scleral abnormality (icteric) bilateral (scleral icterus) Neck: Neck: supple Resp: Effort & Inspection: normal respiratory effort Auscultation: clear to auscultation bilaterally Cardio: Rate: regular rate Rhythm: regular rhythm GI: Inspection: distended GI Palp: No Tenderness to palpation present (GI) and Yes Ascites present Percussion: Yes Fluid wave present Auscultation: normal bowel sounds Skin: Other: icteric Neuro: Speech: normal speech Extrem: General: edema bilateral and pedal edema Psych: Affect: normal affect Objective Data Vital Signs Vital Signs: Vital Signs - 24 hr 11/29/23 16:00 11/29/23 16:00 11/29/23 21:55 Temperature 97.6 F 97.7 F Pulse Rate 82 96 80 Respiratory Rate 15 18 Blood Pressure 106/54 L 124/52 L Pulse Oximetry 96 100 Oxygen Delivery 11/29/23 23:35 11/29/23 20:30 11/30/23 04:00 Temperature 97.4 F L 97.6 F Pulse Rate 80 84 Respiratory Rate 17 17 Blood Pressure 113/52 L 115/47 L Pulse Oximetry 96 99 Oxygen Delivery Room Air 11/29/23 20:00 11/30/23 00:00 11/30/23 04:00 Temperature Pulse Rate 81 79 86 Respiratory Rate Blood Pressure Pulse Oximetry Oxygen Delivery 11/30/23 08:00 11/30/23 08:00 11/30/23 08:00 Temperature 97.6 F Pulse Rate 88 83 88 Respiratory Rate 17 Blood Pressure 120/52 L Pulse Oximetry 97 97 Oxygen Delivery Room Air 11/30/23 12:00 11/30/23 12:00 Temperature 97.6 F Pulse Rate 80 86 Respiratory Rate 18 Blood Pressure 116/61 Pulse Oximetry 97 Oxygen Delivery I
[2023-11-30 17:03] LABS: Glucose Point of Care 349 mg/dl (65-105)
[2023-11-30 17:22] LABS: Amylase Peritoneal Fluid <10 U/L
[2023-11-30 21:11] LABS: Vancomycin Trough 11.9 ug/mL (10.0-20.0)
[2023-11-30 21:44] LABS: Glucose Point of Care 330 mg/dl (65-105)
[2023-12-01] VITALS (14 sets, daily range): BP systolic 100–138; BP diastolic 40–70; PULSE 73–92; RESP 16–20; TEMP 36.3–36.7; O2SAT 94–100
[2023-12-01 06:02] LABS: Basophils Percent Auto 0.3 % (0.2-1.2); Eosinophils Percent Auto 0.8 % (0-4.4); Hematocrit 22.2 % (42.0-52.0); Hemoglobin 7.2 g/dL (14.0-18.0); Immature Granulocyte Absolute 0.04 K/mm3 (0.00-0.031); Immature Platelet Fraction Pct 3.2 % (0.9-11.2); Lymphocytes Absolute Auto 0.71 K/mm3 (0.9-3.2); Lymphocytes Percent Auto 17.8 % (18.3-44.2); Mean Corpuscular HGB Conc 32.4 g/dl (32-36); Mean Corpuscular Hemoglobin 35.5 pg (26-34); Mean Corpuscular Volume 109.4 fl (80-100); Mean Platelet Volume 9.9 fl (7.4-10.4); Monocytes Absolute Auto 0.4 K/mm3 (0.1-0.6); Neutrophils Absolute Auto 2.8 K/mm3 (1.3-6.7); Neutrophils Percent Auto 70.1 % (45.5-73.1); Platelet Count Result 54 k/mm3 (150-375); Red Blood Count 2.03 M/mm3 (4.6-6.20); Red Cell Distribution Width 22.8 % (11.5-14.5)
[2023-12-01 06:07] LABS: Prothrombin Time 33.1 Seconds (11.1-14.7)
[2023-12-01 06:08] LABS: Partial Thromboplastin Time 48.1 Seconds (22.3-36.8)
[2023-12-01 06:11] LABS: Alanine Aminotransferase 31 U/L (6-50); Albumin Level 3.5 g/dL (3.5-5.1); Alkaline Phosphatase 201 U/L (38-126); Anion Gap 5 mmol/L (4-12); Aspartate Amino Transferase 52 U/L (17-59); Bilirubin,Total 14.5 mg/dL (0.2-1.3); Blood Urea Nitrogen 20 mg/dL (9-20); Carbon Dioxide 33 mmol/L (22-30); Chloride 97 mmol/L (98-107); Estimated CRCL calculation 146 ml/min; Estimated Glomerular Filt Rate > 60; Glucose 190 mg/dL (65-110); Potassium 4.1 mmol/L (3.4-5.0); Sodium 135 mmol/L (137-145)
[2023-12-01 07:55] LABS: Anisocytosis 1+; Hypochromasia 1+; Platelet Estimate Decreased (Adequate); Poikilocytosis 1+
[2023-12-01 07:56] LABS: Schistocytes None Seen
[2023-12-01 08:09] LABS: Glucose Point of Care 182 mg/dl (65-105)
[2023-12-01] MEDS: FOLIC ACID 1 MG TABLET PO (08:41)
[2023-12-01] MEDS: MEROPENEM 1 GM/NS 100 ML 1 GM/100 ML BAG IVPB ×3 (08:41→21:38)
[2023-12-01] MEDS: lisinopriL 10 MG TABLET PO (09:07)
[2023-12-01] MEDS: THIAMINE HCL 100 MG TABLET PO (09:07)
[2023-12-01] MEDS: SERTRALINE HCL 50 MG TABLET PO (09:08)
[2023-12-01] MEDS: LACTULOSE 20 GM/30 ML UDC PO ×2 (09:08→17:11)
[2023-12-01] MEDS: SPIRONOLACTONE 50 MG TABLET 100 MG PO (09:08)
[2023-12-01] MEDS: prednisoLONE ORAL SOLN 30 MG/10 ML SOLUTION 40 MG PO (09:08)
[2023-12-01] MEDS: FUROSEMIDE INJ 40 MG/4 ML VIAL IV PUSH ×2 (09:13→17:11)
[2023-12-01] MEDS: PANTOPRAZOLE SODIUM IV 40 MG VIAL IV PUSH ×2 (09:13→21:38)
[2023-12-01] MEDS: NICOTINE (*PBKC) 21 MG PATCH 1 PATCH TRANSDERM (09:15)
--- NOTE | 2023-12-01 10:36 | WPDGIPROGNO ---
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 he is comfortable and bili stable at 14, also receiving abx because G+ in ascitic fluid, no abdominal pain, he also received albumin iv no bed available at tertiary hospital, if continues to improve then he can follow-up as outpatient currently on methylprednisolone given etoh hepatitis (also work up for other chronic liver conditions pending but actin IgG Ab is high- could indicate autoimmune hepatitis but also can be high in someone with alcoholic hepatitis) bili down to 14 from 18 (2) Alcoholic hepatitis: Code(s): K70.10 - Alcoholic hepatitis without ascites Status: Acute Assessment and Plan: medical support nutrition support on steroid now bili 14, normal renal function (3) Alcohol dependence: Qualifiers: Substance use status: other alcohol-induced disorder Qualified Code(s): F10.288 - Alcohol dependence with other alcohol-induced disorder Code(s): F10.20 - Alcohol dependence, uncomplicated Status: Acute Assessment and Plan: [facility] protocol thiamine, nutrition support he is also on lactulose for PSE (4) Pancytopenia: Code(s): D61.818 - Other pancytopenia Status: Acute Assessment and Plan: from cirrhosis, may have bone marrow dysfunction from alcohol no overt gib but monitor (5) Ascites: Qualifiers: Ascites type: due to alcoholic cirrhosis Qualified Code(s): K70.31 - Alcoholic cirrhosis of liver with ascites Code(s): R18.8 - Other ascites Status: Acute Assessment and Plan: had paracentesis, + culture and he has been on abx (6) Anasarca: Code(s): R60.1 - Generalized edema Status: Acute Assessment and Plan: on lasix and aldactone, also low salt diet (7) Coagulopathy: Code(s): D68.9 - Coagulation defect, unspecified Status: Acute Assessment and Plan: s/p vitamin k and FFP Subjective Date/time seen: 12/01/23 10:36 Interval history: he is comfortable Review of Systems Review of Systems: All systems reviewed & are unremarkable except as noted in HPI and below Exam Const: General: comfortable Other: chronically ill appearing, jaundice HENMT: Face/Nose/Sinus: Normal nares present Eyes: Sclera: scleral abnormality (icteric) bilateral (scleral icterus) Neck: Neck: supple Resp: Effort & Inspection: normal respiratory effort Auscultation: clear to auscultation bilaterally Cardio: Rate: regular rate Rhythm: regular rhythm GI: Inspection: distended GI Palp: No Tenderness to palpation present (GI) and Yes Ascites present Percussion: Yes Fluid wave present Auscultation: normal bowel sounds Skin: Other: icteric Neuro: Speech: normal speech Extrem: General: edema bilateral and pedal edema Psych: Affect: normal affect Objective Data Vital Signs Vital Signs: Vital Signs - 24 hr 11/30/23 12:00 11/30/23 12:00 11/30/23 16:00 Temperature 97.6 F 97.6 F Pulse Rate 80 86 82 Respiratory Rate 18 17 Blood Pressure 116/61 118/60 Pulse Oximetry 97 97 Oxygen Delivery 11/30/23 16:00 11/30/23 19:25 11/30/23 20:00 Temperature 97.9 F Pulse Rate 88 96 84 Respiratory Rate 20 Blood Pressure 112/57 L Pulse Oximetry 90 Oxygen Delivery 11/30/23 20:00 11/30/23 20:00 12/01/23 00:00 Temperature 97.6 F Pulse Rate 96 81 Respiratory Rate 20 16 Blood Pressure 112/57 L 120/50 L Pulse Oximetry 90 99 Oxygen Delivery Room Air 12/01/23 00:00 12/01/23 00:00 12/01/23 03:13 Temperature 97.6 F Pulse Rate 79 79 Respiratory Rate 16 Blood Pressure 120/50 L 136/70 Pulse O
[2023-12-01 11:54] LABS: Glucose Point of Care 239 mg/dl (65-105)
[2023-12-01] MEDS: INSULIN ASPART (*BKC) 100 UNITS/ML SUB-Q ×2 (12:02→17:12)
[2023-12-01 14:46] LABS: Albumin Peritoneal Fluid 1.1 g/dL
--- NOTE | 2023-12-01 15:35 | P.PNIM_ITS ---
Progress Note: A&P Assessment and Plan (1) Decompensation of cirrhosis of liver: Code(s): K72.90 - Hepatic failure, unspecified without coma; K74.60 - Unspecified cirrhosis of liver Status: Acute Assessment and Plan: * 11/23/23?H&H 6.02/20.1 this, 2 units PRBC ordered and will continue to monitor? * Iron studies suggest anemia of chronic disease * AST/ALT 44/ TBill 14.5 * CT abdomen and pelvis showing ascites/cirrhosis * Spironolactone 100 mg and Lasix 40 mg daily * MELD score 27, Ammonia now WNL, daily Coag's * ETOH cessation discussed in length * GI consulted for further recommendations * 11/26/23 hemoglobin of 7 and transfuse 1 unit of PRBCs * Due to patients low platelets and high INR paracentesis was not done until 11/26 * Peritoneal fluid for analysis with cell count and normal ranges. Protein albumin LDH glucose amylase pending. * Gram stain positive for Gram-positive cocci in clusters. * Started on Vancomycin then transitioned to meropenem (11/30) per UTD recommendations. * Ascites fluid culture pending. * 11/29 albumin discontinued. Serum albumin and protein WNL. (2) Alcohol dependence: Qualifiers: Substance use status: other alcohol-induced disorder Qualified Code(s): F10.288 - Alcohol dependence with other alcohol-induced disorder Code(s): F10.20 - Alcohol dependence, uncomplicated Status: Acute Assessment and Plan: Alcohol cessation discussed with the patient. * Patient originally started on Librium 50 mg q.6. Due to increased somnolence this was discontinued and recommended for a CIWA score greater than 12. * Ativan 2 mg Q to for CIWA score greater than 15. * Thiamine, folic acid, and multi-vitamin * PPI daily * CIWA daily * Seizure precautions if indicated (3) Acute liver failure: Code(s): K72.00 - Acute and subacute hepatic failure without coma Status: Acute Assessment and Plan: * GI thinks he has alcoholic hepatitis * Started on methylprednisolone (work up for other chronic liver conditions pending but actin IgG Ab is high- could indicate autoimmune hepatitis but also can be high in someone with alcoholic hepatitis), he will be on steroids for now to treat possible eoth hepatitis which is also rx for AIH. * GI will also send a referral to [facility] hepatology (4) Ascites: Qualifiers: Ascites type: due to alcoholic cirrhosis Qualified Code(s): K70.31 - Alcoholic cirrhosis of liver with ascites Code(s): R18.8 - Other ascites Status: Acute Assessment and Plan: * spironolactone/lasix * paracentesis 11/27/23 negative for infection. Yielded 1450 mL of dark brownish fluid. (5) Anasarca: Code(s): R60.1 - Generalized edema Status: Acute Assessment and Plan: * Lasix 40 mg IV BID and PO spironolactone (6) Pancytopenia: Code(s): D61.818 - Other pancytopenia Status: Acute Assessment and Plan: * 2 Units PRBC transfused on 11/24/23 * Transfuse PRBC if Hgb <7.0 * Transfuse PLT <20 * 11/26 Hgb 6.9 transfused one unit (7) Coagulopathy: Code(s): D68.9 - Coagulation defect, unspecified Status: Acute Assessment and Plan: Patient received vitamin K during hospitalization and FFP (8) Alcoholic hepatitis: Code(s): K70.10 - Alcoholic hepatitis without ascites Status: Acute Assessment and Plan: * GI thinks he has alcoholic he
--- NOTE | 2023-12-01 15:35 | PM.IMPN ---
Progress Note: A&P Assessment and Plan (1) Decompensation of cirrhosis of liver: Code(s): K72.90 - Hepatic failure, unspecified without coma; K74.60 - Unspecified cirrhosis of liver Status: Acute Assessment and Plan: 11/23/23?H&H 6.02/20.1 this, 2 units PRBC ordered and will continue to monitor? Iron studies suggest anemia of chronic disease AST/ALT 44/[address] abdomen and pelvis showing ascites/cirrhosis Spironolactone 100 mg and Lasix 40 mg daily MELD score 27, Ammonia now WNL, daily Coag's ETOH cessation discussed in length GI consulted for further recommendations 11/26/23 hemoglobin of 7 and transfuse 1 unit of PRBCs Due to patients low platelets and high INR paracentesis was not done until 11/26 Peritoneal fluid for analysis with cell count and normal ranges. Protein albumin LDH glucose amylase pending. Gram stain positive for Gram-positive cocci in clusters. Started on Vancomycin then transitioned to meropenem (11/30) per UTD recommendations. Ascites fluid culture pending. 11/29 albumin discontinued. Serum albumin and protein WNL. (2) Alcohol dependence: Qualifiers: Substance use status: other alcohol-induced disorder Qualified Code(s): F10.288 - Alcohol dependence with other alcohol-induced disorder Code(s): F10.20 - Alcohol dependence, uncomplicated Status: Acute Assessment and Plan: Alcohol cessation discussed with the patient. Patient originally started on Librium 50 mg q.6. Due to increased somnolence this was discontinued and recommended for a CIWA score greater than 12. Ativan 2 mg Q to for CIWA score greater than 15. Thiamine, folic acid, and multi-vitamin PPI daily CIWA daily Seizure precautions if indicated (3) Acute liver failure: Code(s): K72.00 - Acute and subacute hepatic failure without coma Status: Acute Assessment and Plan: GI thinks he has alcoholic hepatitis Started on methylprednisolone (work up for other chronic liver conditions pending but actin IgG Ab is high- could indicate autoimmune hepatitis but also can be high in someone with alcoholic hepatitis), he will be on steroids for now to treat possible eoth hepatitis which is also rx for AIH. GI will also send a referral to [facility] hepatology (4) Ascites: Qualifiers: Ascites type: due to alcoholic cirrhosis Qualified Code(s): K70.31 - Alcoholic cirrhosis of liver with ascites Code(s): R18.8 - Other ascites Status: Acute Assessment and Plan: spironolactone/lasix paracentesis 11/27/23 negative for infection. Yielded 1450 mL of dark brownish fluid. (5) Anasarca: Code(s): R60.1 - Generalized edema Status: Acute Assessment and Plan: Lasix 40 mg IV BID and PO spironolactone (6) Pancytopenia: Code(s): D61.818 - Other pancytopenia Status: Acute Assessment and Plan: 2 Units PRBC transfused on 11/24/23 Transfuse PRBC if Hgb <7.0 Transfuse PLT <20 11/26 Hgb 6.9 transfused one unit (7) Coagulopathy: Code(s): D68.9 - Coagulation defect, unspecified Status: Acute Assessment and Plan: Patient received vitamin K during hospitalization and FFP (8) Alcoholic hepatitis: Code(s): K70.10 - Alcoholic hepatitis without ascites Status: Acute Assessment and Plan: GI thinks he has alcoholic hepatitis Started on methylprednisolone (work up for other chronic liver conditions pending but actin IgG Ab is high- could indicate autoimmune hepatitis but also can be high in someone with alcoholic hepatitis), he will be on steroids for now to treat possible eoth hepatitis which is also rx for AIH. GI will also send a referral to [facility] hepatology Subjective Date/time seen: 12/01/23 15:35 Interval history: Patient doing well today. Discussed with patient's family and him that if ascites fluid
[2023-12-01 16:47] LABS: Glucose Point of Care 303 mg/dl (65-105)
[2023-12-01 21:37] LABS: Glucose Point of Care 407 mg/dl (65-105)
[2023-12-01] MEDS: INSULIN ASPART (*BKC) 100 UNITS/ML 10 UNITS SUB-Q (21:54)
[2023-12-02] VITALS: BP 106/40; PULSE 84; PULSE 95
[2023-12-02 01:55] LABS: Glucose Point of Care 359 mg/dl (65-105)
[2023-12-02] MEDS: INSULIN ASPART (*BKC) 100 UNITS/ML 8 UNITS SUB-Q (02:39)
[2023-12-02 03:26] VITALS: BP 115/46; PULSE 91; RESP 16; TEMP 36.4; O2SAT 97
[2023-12-02 04:00] VITALS: BP 115/46; PULSE 84; PULSE 93
[2023-12-02 05:01] LABS: Basophils Percent Auto 0.2 % (0.2-1.2); Eosinophils Absolute Auto 0.1 K/mm3 (0-0.3); Eosinophils Percent Auto 1.1 % (0-4.4); Hematocrit 23.5 % (42.0-52.0); Hemoglobin 7.6 g/dL (14.0-18.0); Immature Granulocyte Absolute 0.06 K/mm3 (0.00-0.031); Immature Granulocyte Percent A 1.3 % (0-0.5); Immature Platelet Fraction Pct 2.7 % (0.9-11.2); Lymphocytes Absolute Auto 0.85 K/mm3 (0.9-3.2); Lymphocytes Percent Auto 18.6 % (18.3-44.2); Mean Corpuscular HGB Conc 32.3 g/dl (32-36); Mean Corpuscular Hemoglobin 35.3 pg (26-34); Mean Corpuscular Volume 109.3 fl (80-100); Mean Platelet Volume 9.6 fl (7.4-10.4); Monocytes Absolute Auto 0.4 K/mm3 (0.1-0.6); Monocytes Percent Auto 9.2 % (2.6-8.5); Neutrophils Absolute Auto 3.2 K/mm3 (1.3-6.7); Neutrophils Percent Auto 69.6 % (45.5-73.1); Nucleated Red Blood Cells Perc 0.4 % (0.0-0.2); Platelet Count Result 53 k/mm3 (150-375); Red Blood Count 2.15 M/mm3 (4.6-6.20); Red Cell Distribution Width 22.5 % (11.5-14.5); White Blood Count 4.6 K/mm3 (4.5-10.0)
[2023-12-02 05:09] LABS: Ammonia 25 umol/L (9-30)
[2023-12-02 05:10] LABS: INR 2.9; Prothrombin Time 32.1 Seconds (11.1-14.7)
[2023-12-02 05:11] LABS: Partial Thromboplastin Time 44.3 Seconds (22.3-36.8)
[2023-12-02 05:14] LABS: Alanine Aminotransferase 35 U/L (6-50); Albumin Level 3.5 g/dL (3.5-5.1); Alkaline Phosphatase 323 U/L (38-126); Anion Gap 6 mmol/L (4-12); Aspartate Amino Transferase 50 U/L (17-59); Bilirubin,Total 14.8 mg/dL (0.2-1.3); Blood Urea Nitrogen 21 mg/dL (9-20); Calcium 9.1 mg/dL (8.4-10.2); Carbon Dioxide 31 mmol/L (22-30); Chloride 95 mmol/L (98-107); Estimated CRCL calculation 168 ml/min; Estimated Glomerular Filt Rate > 60; Glucose 289 mg/dL (65-110); Potassium 3.9 mmol/L (3.4-5.0); Sodium 132 mmol/L (137-145)
[2023-12-02 05:19] LABS: Anisocytosis 2+; Platelet Estimate Decreased (Adequate)
[2023-12-02 05:20] LABS: Crenated RBC 1+; Schistocytes Rare
--- NOTE | 2023-12-02 06:47 | P.TS_ITS ---
Transfer Discharge Sum: Prov Provider Date of admission: 11/22/23 22:03 Primary care physician: Feliz Dhaliwal, [employer]ENER Admitting clinician: Alessandro Avelar MD Consults: 11/22/23 21:54 Consult to Physician Routine Comment: Consulting Provider: Kristian Pepper Reason for consultation: liver failure Has provider been notified: Yes DS: Admitting Diagnosis Discharge Date 12/02/23 Admitting Diagnosis alcoholic cirrhosis DS: Discharge Diagnosis Discharge Diagnosis (1) Decompensation of cirrhosis of liver: Code(s): K72.90 - Hepatic failure, unspecified without coma; K74.60 - Unspecified cirrhosis of liver Status: Acute Assessment and Plan: * 11/23/23?H&H 6.02/20.1 this, 2 units PRBC ordered and will continue to monitor? * Iron studies suggest anemia of chronic disease * AST/ALT 44 TBill 14.5 * CT abdomen and pelvis showing ascites/cirrhosis * Spironolactone 100 mg and Lasix 40 mg daily * MELD score 27, Ammonia now WNL, daily Coag's * ETOH cessation discussed in length * GI consulted for further recommendations * 11/26/23 hemoglobin of 7 and transfuse 1 unit of PRBCs * Due to patients low platelets and high INR paracentesis was not done until 11/26 * Peritoneal fluid for analysis with cell count and normal ranges. Protein albumin LDH glucose amylase pending. * Gram stain positive for Gram-positive cocci in clusters. * Started on Vancomycin then transitioned to meropenem (11/30) per UTD recommendations. * Ascites fluid culture pending. * 11/29 albumin discontinued. Serum albumin and protein WNL. (2) Alcohol dependence: Qualifiers: Substance use status: other alcohol-induced disorder Qualified Code(s): F10.288 - Alcohol dependence with other alcohol-induced disorder Code(s): F10.20 - Alcohol dependence, uncomplicated Status: Acute Assessment and Plan: Alcohol cessation discussed with the patient. * Patient originally started on Librium 50 mg q.6. Due to increased somnolence this was discontinued and recommended for a CIWA score greater than 12. * Ativan 2 mg Q to for CIWA score greater than 15. * Thiamine, folic acid, and multi-vitamin * PPI daily * CIWA daily * Seizure precautions if indicated (3) Acute liver failure: Code(s): K72.00 - Acute and subacute hepatic failure without coma Status: Acute Assessment and Plan: * GI thinks he has alcoholic hepatitis * Started on methylprednisolone (work up for other chronic liver conditions pending but actin IgG Ab is high- could indicate autoimmune hepatitis but also can be high in someone with alcoholic hepatitis), he will be on steroids for now to treat possible eoth hepatitis which is also rx for AIH. * GI will also send a referral to [facility] hepatology (4) Ascites: Qualifiers: Ascites type: due to alcoholic cirrhosis Qualified Code(s): K70.31 - Alcoholic cirrhosis of liver with ascites Code(s): R18.8 - Other ascites Status: Acute Assessment and Plan: * spironolactone/lasix * paracentesis 11/27/23 negative for infection. Yielded 1450 mL of dark brownish fluid. (5) Anasarca: Code(s): R60.1 - Generalized edema Status: Acute Assessment and Plan: * Lasix 40 mg IV BID and PO spironolactone (6) Pancytopenia: Code(s): D61.818 - Other pancytopen
--- NOTE | 2023-12-02 06:47 | PM.TDS ---
Transfer Discharge Sum: Prov Provider Date of admission: 11/22/23 22:03 Primary care physician: Feliz Dhaliwal, ROOF SHINGLER Admitting clinician: Alessandro Avelar MD Consults: 11/22/23 21:54 Consult to Physician Routine Comment: Consulting Provider: Kristian Pepper Reason for consultation: liver failure Has provider been notified: Yes DS: Admitting Diagnosis Discharge Date 12/02/23 Admitting Diagnosis alcoholic cirrhosis DS: Discharge Diagnosis Discharge Diagnosis (1) Decompensation of cirrhosis of liver: Code(s): K72.90 - Hepatic failure, unspecified without coma; K74.60 - Unspecified cirrhosis of liver Status: Acute Assessment and Plan: 11/23/23?H&H 6.02/20.1 this, 2 units PRBC ordered and will continue to monitor? Iron studies suggest anemia of chronic disease AST/ALT 44/ TBill 14.5 CT abdomen and pelvis showing ascites/cirrhosis Spironolactone 100 mg and Lasix 40 mg daily MELD score 27, Ammonia now WNL, daily Coag's ETOH cessation discussed in length GI consulted for further recommendations 11/26/23 hemoglobin of 7 and transfuse 1 unit of PRBCs Due to patients low platelets and high INR paracentesis was not done until 11/26 Peritoneal fluid for analysis with cell count and normal ranges. Protein albumin LDH glucose amylase pending. Gram stain positive for Gram-positive cocci in clusters. Started on Vancomycin then transitioned to meropenem (11/30) per UTD recommendations. Ascites fluid culture pending. 11/29 albumin discontinued. Serum albumin and protein WNL. (2) Alcohol dependence: Qualifiers: Substance use status: other alcohol-induced disorder Qualified Code(s): F10.288 - Alcohol dependence with other alcohol-induced disorder Code(s): F10.20 - Alcohol dependence, uncomplicated Status: Acute Assessment and Plan: Alcohol cessation discussed with the patient. Patient originally started on Librium 50 mg q.6. Due to increased somnolence this was discontinued and recommended for a CIWA score greater than 12. Ativan 2 mg Q to for CIWA score greater than 15. Thiamine, folic acid, and multi-vitamin PPI daily CIWA daily Seizure precautions if indicated (3) Acute liver failure: Code(s): K72.00 - Acute and subacute hepatic failure without coma Status: Acute Assessment and Plan: GI thinks he has alcoholic hepatitis Started on methylprednisolone (work up for other chronic liver conditions pending but actin IgG Ab is high- could indicate autoimmune hepatitis but also can be high in someone with alcoholic hepatitis), he will be on steroids for now to treat possible eoth hepatitis which is also rx for AIH. GI will also send a referral to [facility] hepatology (4) Ascites: Qualifiers: Ascites type: due to alcoholic cirrhosis Qualified Code(s): K70.31 - Alcoholic cirrhosis of liver with ascites Code(s): R18.8 - Other ascites Status: Acute Assessment and Plan: spironolactone/lasix paracentesis 11/27/23 negative for infection. Yielded 1450 mL of dark brownish fluid. (5) Anasarca: Code(s): R60.1 - Generalized edema Status: Acute Assessment and Plan: Lasix 40 mg IV BID and PO spironolactone (6) Pancytopenia: Code(s): D61.818 - Other pancytopenia Status: Acute Assessment and Plan: 2 Units PRBC transfused on 11/24/23 Transfuse PRBC if Hgb <7.0 Transfuse PLT <20 11/26 Hgb 6.9 transfused one unit (7) Coagulopathy: Code(s): D68.9 - Coagulation defect, unspecified Status: Acute Assessment and Plan: Patient received vitamin K during hospitalization and FFP (8) Alcoholic hepatitis: Code(s): K70.10 - Alcoholic hepatitis without ascites Status: Acute Assessment and Plan: GI thinks he has alcoholic hepatitis Started on methylpredn
[2023-12-02 12:29] LABS: Mitochondrial (M2) Ab (IgG) <=20.0 U (<=20.0)
[2023-12-02 22:43] LABS: Glucose Peritoneal Fluid 185 mg/dL; Total Protein Peritoneal Fluid <3.0 g/dL
--- NOTE | 2023-12-04 07:49 | PC.NURSE ---
Aerobic and Anerobic cx are negative in Ascites fluid
== END 2023-12-02 06:19 | disposition short-term general hospital (02) | DRG 433 ==
LOC: ANHED 21:27 → ANH2MED 22:36
PROVIDERS: Nurse Practitioner; Nurse Practitioner Family; Physician Assistant; Admitting Provider Internal Medicine; Emergency Provider Emergency Medicine; PCP Nurse Practitioner Family; Visit Provider Internal Medicine Critical Care Medicine
DX: K70.40 Alcoholic hepatic failure without coma (principal); D61.818 Other pancytopenia; Z68.41 Body mass index [BMI] 40.0-44.9, adult; K70.31 Alcoholic cirrhosis of liver with ascites; K70.11 Alcoholic hepatitis with ascites; F10.20 Alcohol dependence, uncomplicated; E66.01 Morbid (severe) obesity due to excess calories; F17.210 Nicotine dependence, cigarettes, uncomplicated; R60.1 Generalized edema; R79.1 Abnormal coagulation profile
CPT/HCPCS: 36415; 36430; 49083; 71046; 74177; 80048; 80053; 80074; 80202; 80307; 82042; 82140; 82150; 82248; 82390; 82607; 82728; 82746; 82945; 82948; 83036; 83520; 83540; 83550; 83605; 83615; 83690; 83735; 83880; 84157; 84484; 85014; 85018; 85025; 85055; 85610; 85730; 86038; 86364; 86376; 86850; 86900; 86901; 86923; 87070; 87075; 87205; 88108; 88305; 89051; 93005; 97110; 97161; 97166; 97530; 97535; 99285; A9270; C9113; J1815; J1940; J2185; J3370; J7050; P9016; P9017; P9034; P9047; Q9967